=== PATIENT | female | born 1965 | race Caucasian/White ===

== ENCOUNTER 2017-02-18 13:05 | Observation (INO) ==
[2017-02-18] MEDS ORDERED: *HR* HYDROcodone/Acet 5/325 mg TABLET PO ONE (13:13)
[2017-02-18] MEDS ORDERED: *HR* HYDROmorphone (PF) 1 MG/ML SYRINGE IM ONE (14:58)
[2017-02-18 15:42] LABS: Hematocrit 42.7 % (35.3-44.9); Hemoglobin 13.7 g/dL (11.5-15.4); Mean Corpuscular HGB Conc 32.1 g/dL (31.6-35.5); Mean Corpuscular Hemoglobin 26.3 pg (28.0-33.3); Mean Platelet Volume 9.4 fL (9.4-12.4); Platelet Count 259 K/mcL (140-400); Red Blood Count 5.21 M/mcL (3.82-4.97); Red Cell Distribution Width 13.5 % (11.5-14.5)
[2017-02-18 15:56] LABS: Alanine Aminotransferase 33 Units/L (0-55); Albumin/Globulin Ratio 1.1 (1.1-2.2); Alkaline Phosphatase 111 Units/L (38-126); Aspartate Amino Transferase 28 Units/L (5-34); BUN/Creatinine Ratio 13 (6-26); Bilirubin,Total 0.5 mg/dL (0.2-1.2); Blood Urea Nitrogen 10 mg/dL (7-20); Calcium 9.4 mg/dL (8.6-10.8); Carbon Dioxide 27 mEq/L (19-29); Chloride 107 mEq/L (98-109); Globulin 3.5 g/dL (2.4-3.5); Glucose 101 mg/dL (70-99); Osmolality,Calculated 291 (280-300); Potassium 3.9 mEq/L (3.5-4.5); Sodium 141 mEq/L (136-145); Total Protein 7.5 g/dL (6.0-8.3); eGFR For African Americans > 60 (> 60); eGFR For Non-African Americans > 60 (> 60)
[2017-02-18] MEDS ORDERED: Acetaminophen 325 MG TABLET PO PRN (17:44)
[2017-02-18] MEDS ORDERED: Ondansetron 4 MG/2 ML VIAL IVP PRN (17:44)
[2017-02-18] MEDS ORDERED: Naloxone 0.4 MG/ML INJ IVP PRN (17:44)
[2017-02-18] MEDS ORDERED: Dextrose Gel 15 GM PO PRN ×2 (17:47)
[2017-02-18] MEDS ORDERED: *HR* Dextrose 50 % in Water (Syg) 50 ML SYRINGE IVP PRN (17:47)
[2017-02-18] MEDS ORDERED: D5% in Water 1,000 ML IVC PRN (17:47)
--- NOTE | 2017-02-18 18:15 | Internal Med History&Physical ---
Date of Encounter: 02/18/17 Time of Encounter: 18:00 Assessment and Plan (1) T11 vertebral fracture Current visit: Yes Status: Acute Acute T11 superior endplate compression fracture - secondary to mechanical fall Continue IV morphine when necessary Orthopedics consult - ED physician discussed with Dr. Hernandez MRI thoracic spine - revealed acute T11 superior endplate compression fracture with about 30% vertebral body height loss centrally with no retropulsion of fracture fragments into the spinal canal. No other acute findings Qualifiers: Encounter type: initial encounter Fracture type: closed Fracture morphology: other fracture Qualified Code(s): S22.088A - Other fracture of T11 -T12 vertebra, initial encounter for closed fracture (2) Type 2 diabetes mellitus Current visit: Yes Status: Chronic Diabetes mellitus type 2, [id number], hyperglycemia Continue glucose checks, insulin sliding scale Qualifiers: Diabetes mellitus complication status: without complication Diabetes mellitus technician terminal and repeater insulin use: without senior living use Qualified Code(s): E11.9 - Type 2 diabetes mellitus without complications (3) Essential hypertension Current visit: Yes Status: Chronic Essential hypertension, controlled, continue home meds, monitor (4) Sacroiliac joint disease Current visit: No Status: Chronic Chronic sacroiliac joint disease - status post local injection Follows up with pain management (5) DVT prophylaxis Current visit: Yes Status: Acute Continue heparin subcutaneous Internal Medicine - H&P: HPI Chief complaint: Back pain after mechanical fall Admitted From: Emergency Dept Plans for Post Hospital Care: Home History of present illness: Ms. Salas is a 51 year old female with past medical history of diabetes, hypertension, GERD, thyroid disease and chronic sacroiliac joint disease. Patient presents to the ED with complaints of back pain and right leg pain. On examination patient is awake and alert. Not in any distress. Able to answer personal property. is at bedside. Patient states she was moving boxes using a ruthie. She states she suddenly slipped and fell backwards with the ruthie falling on her. Patient complains of upper and mid back pain since her fall. Rates the pain 6 out of 10. Radiates to her back at times. Says it is sharp. Worse with movement. She also complains of right lower leg pain also due to the fall. Says her right lower leg hurts more. No alleviating factors. No other associated symptoms. Denies chest pain, denies shortness of breath, denies palpitations, denies headache or fever or cough. Initial evaluation in the ED revealed no acute process on chest x-ray. X-ray of the tibia and fibula, ankle and foot on the right side is negative. CT of the abdomen and pelvis revealed acute T11 superior endplate compression fracture. Lumbar spine CT does not show any acute process. Patient is being admitted for acute thoracic vertebral fracture. Orthopedics has been consulted by ED physician. Patient will be on IV morphine when necessary for pain. We will continue all home medications. Patient and have been explained about her condition and plan of care. Understood and agreed. No unanswered questions. CODE STATUS full code. Past Med Surg Social Fam HX - Past Medical History Medical history: diabetes, hyperlipidemia, hypertension Psychiatric history: no psych history - Past Surgical History Surgical History: hysterectomy, orthopedic, other - Social History Smoking Status: Never smoker Smokeless Tobacco Status: No Alcohol use: none Drug use: none - Family History Mother Living Status: Still Living Hx Family Cardiac Disorders: Yes Hx Family Cancer: Yes (Breast and kidney) Hx Family Endocrine Disorder: Yes Father Living Status: Still Living Hx Family Cardiac Disorders: Yes Hx Family Respiratory Disorders: Yes Hx Family Endocrine Disorder: Yes Internal Medicine - H&P: Meds Amitriptyline [Elavil] 25 mg PO HS 04/25/15 [History] Aspirin 81 mg PO DAILY 04/25/15 [History] Atorvastatin [Lipitor] 40 mg PO HS 04/25/15 [History] Gabapentin [Neurontin] 300 mg PO QAM 04/25/15 [History] Levothyroxine [Synthroid] 100 mcg PO DAILY 04/25/15 [History] Losartan [Cozaar] 50 mg PO DAILY 04/25/15 [History] Metformin [Glucophage] 500 mg PO DAILY 04/25/15 [History] Metoprolol XL (24 HR) Succ [Toprol Xl] 150 mg PO DAILY 04/25/15 [History] Omeprazole [PriLOSEC] 20 mg PO DAILY 04/25/15 [History] Pramipexole [Mirapex] 0.25 mg PO HS 04/25/15 [History] Topiramate [Topamax] 100 mg PO DAILY 04/25/15 [History] Zolpidem [Ambien] 10 mg PO HS PRN 04/25/15 [History] Ezetimibe [Zetia] 10 mg PO DAILY 02/18/17 [History] Gabapentin [Neurontin] 600 mg PO HS 02/18/17 [History] Allergies carbidopa [From Sinemet] Adverse Reaction (Mild, Verified 02/06/17 15:00) eleavates liver or kindey studies levodopa [From Sinemet] Adverse Reaction (Mild, Verified 02/06/17 15:00) eleavates liver or kindey studies simvastatin Adverse Reaction (Mild, Verified 02/06/17 15:00) eleavates liver and kindey studies All Systems PM: A 10-system review of systems was performed and is negative for pertinent findings except as documented above in the HPI. - Constitutional Constitutional: no fatigue, no fever(s), no weakness - EENT Eyes: no blurry vision - Cardiovascular Cardiovascular ROS IM: no chest pain, no diaphoresis, no dyspnea, no dyspnea on exertion, no lightheadedness, no orthopnea, no syncope - Respiratory Respiratory: no cough, no dyspnea, no dyspnea on exertion, no wheezing, no chest congestion - Gastrointestinal Gastrointestinal: no abdominal pain, no constipation, no diarrhea, no melena, no nausea, no vomiting - Genitourinary Genitourinary: no dysuria - Musculoskeletal Musculoskeletal ROS IM: arthralgias, back pain, other (Right leg pain) - Neurological Neurological ROS: radicular pain, no abnormal gait, no abnormal speech, no dizziness, no focal weakness, no loss of vision, no memory loss, no numbness, no tingling - Constitutional Vitals: Temp Pulse Resp BP Pulse Ox 97.5 F L 74 16 181/106 97 02/18/17 17:11 02/18/17 17:11 02/18/17 17:11 02/18/17 17:11 02/18/17 17:11 General appearance: Present: A&O X 3, pleasant, obese, answers questions appropriately - Head Head exam: Present: atraumatic - Eye Eye exam: Present: EOMI - Neck Neck exam general surgery: Present: supple - Respiratory Respiratory exam: Present: CTAB. Absent: rales, rhonchi, wheezes - Cardiovascular Cardiovascular exam: Present: RRR, +S1, +S2 - GI/Abdominal GI/Abdominal exam: Present: soft, no peritoneal signs. Absent: distended, firm , guarding, rigid, tenderness - Extremities Exam Extremities exam: Present: pedal edema (mild b/l lower leg), tenderness (right lower leg tenderness+), radial pulses palpable and symetrical. Absent: cyanotic - Back Exam Back exam: Present: muscle spasm, paraspinal tenderness, vertebral tenderness ( thoracic spine tenderness+) - Neurological Exam Neurological exam: Present: alert, oriented X3, no focal deficits. Absent: facial droop, speech deficit Internal Med - H&P Results - Labs CBC & Chem 7: 02/18/17 15:34 02/18/17 15:34
[2017-02-18] MEDS: Insulin LISPRO 300 UNITS/3 ML VIAL SQ SCH (19:03)
--- NOTE | 2017-02-18 19:58 | Emergency Department Note ---
Disposition Clinical Impression: T11 vertebral fracture Qualifiers: Encounter type: initial encounter Fracture type: closed Fracture morphology: other fracture Qualified Code(s): S22.088A - Other fracture of T11-T12 vertebra , initial encounter for closed fracture Disposition: Home, Self-Care Condition: Good General Adult HPI - General Chief complaint: ED Fall Stated complaint: Fall, Back Pain, Right Lower Leg Pain Source: patient, EMS Limitations: no limitations Nursing Notes Reviewed: Yes Vital Signs Reviewed: Yes - History of Present Illness HPI Narrative: 31-year-old female presents with concern for back pain. She also has leg pain. She was moving a palate of carbonated beverages which ultimately tripped or fallen on top of her. She has resulting abdominal pain, back pain, right lower extremity pain. Pain Scale: 6 - Related Data Home Medications Medication Instructions Recorded Confirmed Amitriptyline [Elavil] 25 mg PO HS 04/25/15 02/18/17 Aspirin 81 mg PO DAILY 04/25/15 02/18/17 Atorvastatin [Lipitor] 40 mg PO HS 04/25/15 02/18/17 Gabapentin [Neurontin] 300 mg PO QA 04/25/15 02/18/17 Levothyroxine [Synthroid] 100 mcg PO DAILY 04/25/15 02/18/17 Losartan [Cozaar] 50 mg PO DAILY 04/25/15 02/18/17 Metformin [Glucophage] 500 mg PO DAILY 04/25/15 02/18/17 Metoprolol XL (24 HR) Succ [Toprol 150 mg PO DAILY 04/25/15 02/18/17 Xl] Omeprazole [PriLOSEC] 20 mg PO DAILY 04/25/15 02/18/17 Pramipexole [Mirapex] 0.25 mg PO HS 04/25/15 02/18/17 Topiramate [Topamax] 100 mg PO DAILY 04/25/15 02/18/17 Zolpidem [Ambien] 10 mg PO HS PRN 04/25/15 02/18/17 Ezetimibe [Zetia] 10 mg PO DAILY 02/18/17 02/18/17 Gabapentin [Neurontin] 600 mg PO HS 02/18/17 02/18/17 Allergies Allergy/AdvReac Type Severity Reaction Status Date / Time carbidopa [From Sinemet] AdvReac Mild eleavates Verified 02/06/17 15:00 liver or kindey studies levodopa [From Sinemet] AdvReac Mild eleavates Verified 02/06/17 15:00 liver or kindey studies simvastatin AdvReac Mild eleavates Verified 02/06/17 15:00 liver and kindey studies All systems ED: reviewed and negative except as stated. Past Medical History - Past Medical History Medical history: Reports: diabetes, hyperlipidemia, hypertension Surgical history: Reports: hysterectomy, orthopedic, other Psychiatric history: Reports: no psych history - Social History Smoking Status: Never smoker Smokeless Tobacco Status: No Alcohol use: Reports: none Drug use: Reports: none Physical Exam - General Limitations: no limitations General appearance: alert - Head Head exam: atraumatic - Eye Eye exam: Present: normal appearance - Neck Neck exam: Present: normal inspection - Chest Chest inspection: Present: normal inspection - Respiratory Respiratory exam: Present: normal lung sounds bilaterally - Cardiovascular Cardiovascular exam: Present: regular rate, normal rhythm - Abdominal Exam Abdominal exam: Present: soft, Non-Tender - Extremities Exam Extremities exam: Present: normal inspection, full ROM - Expanded Lower Extremity Exam Hip/Pelvis exam: Present: normal inspection, full ROM Upper leg exam: Present: normal inspection, full ROM Knee exam: Present: normal inspection, full ROM Lower leg exam: Present: tenderness Ankle exam: Present: tenderness Foot/toe exam: Present: tenderness Gait: observed and normal - Back Exam Back exam: Present: normal inspection, full ROM - Neurological Exam Neurological exam: Present: alert, oriented X3, CN II-XII intact - Psychiatric Psychiatric exam: Present: normal affect - Skin Skin exam: Present: warm, dry Course Vital Signs Temperature 97.6 F 02/18/17 13:09 Pulse Rate 84 02/18/17 13:09 Respiratory Rate 16 02/18/17 13:09 Blood Pressure 164/125 02/18/17 13:09 O2 Sat by Pulse Oximetry 95 02/18/17 13:09 Temperature 97.5 F L 02/18/17 17:11 Pulse Rate 74 02/18/17 17:11 Respiratory Rate 16 02/18/17 17:11 Blood Pressure 181/106 02/18/17 17:11 O2 Sat by Pulse Oximetry 97 02/18/17 17:11 Oxygen Delivery Oxygen Delivery Room Air Medical Decision Making - MDM Narrative Medical decision making narrative: 51-year-old female with trauma related to a fall. CT scan obtained of the abdomen and pelvis as well as lumbar spine. CT scan shows evidence of acute T11 endplate fracture. I did discuss the case with the on-call spine surgeon who is agreed to evaluate the patient has an inpatient. She will be admitted to the hospitalist team pending spine surgery evaluation. Patient was stable at the time of admission. Additionally she complained of pain in the right lower extremity. She has no evidence of acute fracture. She has normal neurovascular examination. At the time of admission the patient's strength is 5 /5, sensation was normal, reflexes are checked and normal. - Lab Data Result diagrams: 02/18/17 15:34 02/18/17 15:34 Lab Results 02/18/17 02/18/17 Range/Units 15:34 15:34 WBC 14.6 H (4.3-11.1) K/mcL RBC 5.21 H (3.82-4.97) M/mcL Hgb 13.7 (11.5-15.4) g/dL Hct 42.7 (35.3-44.9) % MCV 82.0 L (83.0-100.0) fL MCH 26.3 L (28.0-33.3) pg MCHC 32.1 (31.6-35.5) g/dL RDW 13.5 (11.5-14.5) % Plt Count 259 (140-400) K/mcL MPV 9.4 (9.4-12.4) fL Sodium 141 (136-145) mEq/L Potassium 3.9 (3.5-4.5) mEq/L Chloride 107 (98-109) mEq/L Carbon Dioxide 27 (19-29) mEq/L BUN 10 (7-20) mg/dL Creatinine 0.80 (0.57-1.11) mg/dL Est GFR ( Amer) > 60 (> 60) Est GFR (Non-Af Amer) > 60 (> 60) BUN/Creatinine Ratio 13 (6-26) Glucose 101 H (70-99) mg/dL Calculated Osmolality 291 (280-300) Calcium 9.4 (8.6-10.8) mg/dL Total Bilirubin 0.5 (0.2-1.2) mg/dL AST 28 (5-34) Units/L ALT 33 (0-55) Units/L Alkaline Phosphatase 111 (38-126) Units/L Serum Total Protein 7.5 (6.0-8.3) g/dL Albumin 4.0 (3.5-5.0) g/dL Globulin 3.5 (2.4-3.5) g/dL Albumin/Globulin Ratio 1.1 (1.1-2.2)
[2017-02-18 20:01] LABS: INR 1.1; Prothrombin Time 12.3 Seconds (9.4-12.1)
[2017-02-18] MEDS: Famotidine 20 MG/2 ML VIAL IVP SCH (20:04)
[2017-02-18] MEDS: *HR* Morphine 2 MG/ML SYRINGE IVP PRN (20:05)
[2017-02-18] MEDS: Gabapentin 300 MG CAPSULE PO SCH (20:05)
[2017-02-18] MEDS: *HR* Heparin 5,000 UNIT/ML VIAL SQ SCH (21:48)
[2017-02-19 05:24] LABS: Basophils % 0.5 %; Eosinophils # 0.2 K/mcL (0.0-0.6); Eosinophils % 2.2 %; Hemoglobin 12.8 g/dL (11.5-15.4); Immature Granulocytes % 0.3 % (0-4); Lymphocytes # 2.5 K/mcL (0.6-4.6); Lymphocytes % 28.5 %; Mean Corpuscular Hemoglobin 26.7 pg (28.0-33.3); Mean Corpuscular Volume 83.3 fL (83.0-100.0); Mean Platelet Volume 9.8 fL (9.4-12.4); Monocytes # 0.8 K/mcL (0.0-1.3); Monocytes % 9.5 %; Neutrophils # 5.2 K/mcL (1.6-8.9); Platelet Count 250 K/mcL (140-400); Red Cell Distribution Width 13.8 % (11.5-14.5)
[2017-02-19] MEDS: Famotidine 20 MG/2 ML VIAL IVP SCH ×2 (05:28→17:28)
[2017-02-19] MEDS: *HR* Heparin 5,000 UNIT/ML VIAL SQ SCH ×2 (05:28→17:29)
[2017-02-19] MEDS: *HR* Morphine 2 MG/ML SYRINGE IVP PRN ×4 (05:28→19:26)
[2017-02-19 05:37] LABS: BUN/Creatinine Ratio 17 (6-26); Blood Urea Nitrogen 13 mg/dL (7-20); Calcium 8.9 mg/dL (8.6-10.8); Carbon Dioxide 25 mEq/L (19-29); Chloride 107 mEq/L (98-109); Glucose 138 mg/dL (70-99); Osmolality,Calculated 292 (280-300); Potassium 3.8 mEq/L (3.5-4.5); Sodium 140 mEq/L (136-145); eGFR For African Americans > 60 (> 60); eGFR For Non-African Americans > 60 (> 60)
[2017-02-19] MEDS: Insulin LISPRO 300 UNITS/3 ML VIAL SQ SCH ×3 (07:59→17:25)
[2017-02-19] MEDS: Aspirin 81 MG TAB.CHEW PO SCH (09:41)
[2017-02-19] MEDS: Metoprolol XL (24 HR) Succ 50 MG TAB.ER.24H PO SCH (09:41)
[2017-02-19] MEDS: Gabapentin 300 MG CAPSULE PO SCH ×2 (09:41→21:23)
[2017-02-19] MEDS: Topiramate 100 MG TABLET PO SCH (09:41)
[2017-02-19 11:45] LABS: Bilirubin,Urine Negative (Negative); Blood,Urine Negative (Negative); Clarity,Urine Cloudy (Clear); Color,Urine Yellow (Yellow); Glucose,Urine (UA) Normal (Normal); Ketones,Urine Negative (Negative); Leukocyte Esterase,Urine Trace (Negative); Nitrite,Urine Negative (Negative); PH,Urine 5.5 pH Units (5.0-8.0); Protein,Urine Negative (Neg-Trace); Specific Gravity,Urine 1.027 (1.010-1.025); Urobilinogen,Urine Normal (Normal)
[2017-02-19 11:48] LABS: Bacteria,Urine Few per hpf (None-Few); Hyaline Casts,Urine None Seen per lpf (None-Few); Squamous Epithelial Cell,Urine Many per lpf (None-Few)
--- NOTE | 2017-02-19 12:48 | Internal Med Progress Note ---
Date of Encounter: 02/19/17 Time of Encounter: 10:15 - Assessment and plan (1) T11 vertebral fracture Current Visit: Yes Status: Acute Assessment and plan: Extensive imaging consistent with acute compression fracture to T11. According to ER reports, Dr. Hernandez was notified yesterday, have paged him again today to ensure that he has been brought on board. Appreciate his recommendations. In the meantime, patient's pain medication is on lasting approximately 1-1/2 hours, will increase her pain medication and monitor. Chest x-ray negative. Plain films of her ankle, foot, and tib-fib have all been negative. Lumbar spine CT unremarkable for acute processes. Thoracic spine MRI consistent with T11 compression fracture. Abdominal CT negative for acute processes other than the compression fracture. PT is on board. Patient stating she had numbness and tingling in her right leg yesterday that has since subsided. ITS Impressions Abdomen/Pelvis CT 02/18/17 13:11 IMPRESSION: 1. No evidence of intra abdominopelvic injury 2. Acute T11 superior endplate compression fracture D/ / Harish Mills MD / Harish Mills MD Interpreting Provider: Harish Mills MD Ankle X-Ray 02/18/17 13:11 IMPRESSION: Nonspecific soft tissue edema along the posterior aspect of the right lower leg. No acute fracture or dislocation. D/ / Alessandro Mcduffie MD / Alessandro Mcduffie MD Interpreting Provider: Alessandro Mcduffie MD Chest X-Ray 02/18/17 13:11 IMPRESSION: No acute process. D/ / Alessandro Mcduffie MD / Alessandro Mcduffie MD Interpreting Provider: Alessandro Mcduffie MD Lumbar Spine CT 02/18/17 13:11 IMPRESSION: No acute abnormality of the lumbar spine. Mild multilevel disc degenerative changes without evidence of significant canal narrowing. D/ / 02/18/2017 14:47:12 Alessandro Mcduffie MD / [facility] Interpreting Provider: Alessandro Mcduffie MD Foot X-Ray 02/18/17 14:46 IMPRESSION: 1. No acute osseous abnormality. 2. Mild hallux valgus deformity and osseous bunion. 3. 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 D/ / Tad Garibay MD / Tad Garibay MD Interpreting Provider: Tad Garibay MD Tibia/Fibula X-Ray 02/18/17 14:46 IMPRESSION: No fracture or radiopaque foreign body D/ / Harish Mills MD / Harish Mills MD Interpreting Provider: Harish Mills MD Thoracic Spine MRI 02/18/17 15:05 IMPRESSION: 1. Acute T11 superior endplate compression fracture with about 30% vertebral body height loss centrally. No retropulsion of fracture fragments into the spinal canal. 2. No additional acute thoracic spine fracture. No significant thoracic spinal canal or neural foraminal stenosis. The findings were sent to the Radiology Results Communication [facility] at 7:33 pm on 02/18/2017to be communicated to a licensed caregiver. D/ / 02/18/2017 19:33:20 [facility] Marquis [facility] Inter[facility] Provider: José Antonio Marquis MD Qualifiers: Encounter type: initial encounter Fracture type: closed Fracture morphology: other fracture Qualified Code(s): S22.088A - Other fracture of T11 -T12 vertebra, initial encounter for closed fracture (2) Fall Current Visit: Yes Status: Acute Assessment and plan: Appears mechanical in nature. Patient denies loss of consciousness. Qualifiers: Encounter type: initial encounter Qualified Code(s): W19.XXXA - Unspecified fall, initial encounter (3) Sacroiliac joint disease Current Visit: No Status: Chronic (4) Type 2 diabetes mellitus Current Visit: Yes Status: Chronic Assessment and plan: Controlled with an A1c of 6.0%. Continue sliding scale while admitted. Qualifiers: Diabetes mellitus complication status: without complication Diabetes mellitus regional intermodal truck driver insulin use: without regional intermodal truck driver use Qualified Code(s): E11.9 - Type 2 diabetes mellitus without complications (5) Essential hypertension Current Visit: Yes Status: Chronic Assessment and plan: Blood pressure has improved since admission although she remains borderline hypertensive. Home, she is on Toprol 150 mg daily, losartan 50 mg daily and both of these have been continued. We will continue to address her pain as this is the likely cause of her elevated pressures. If she is still hypertensive once her pain is controlled; will adjust antihypertensive medications as needed. (6) DVT prophylaxis Current Visit: Yes Status: Acute Assessment and plan: Subcutaneous heparin (7) Leukocytosis Current Visit: Yes Status: Resolved Assessment and plan: resolved; appears stress related- no signs of acute infections other than mildly abnormal UA- will culture- patient denies dysuria - Subjective Interval history: Patient seen and examined. On examination, patient is sitting upright in bed conversing with her . Patient stating her pain is not currently controlled. She states that that the numbness and tingling she had in her right leg have improved. She states she is eating well. - Constitutional Vitals: Temp Pulse Resp BP Pulse Ox 98.8 F 88 16 152/93 97 02/19/17 11:20 02/19/17 11:20 02/19/17 11:20 02/19/17 11:20 02/19/17 11:20 General appearance: Present: A&O X 3, pleasant, no acute distress, obese, answers questions appropriately - Head Head exam: Present: atraumatic, normocephalic - Eye Eye exam: Present: PERRL, conjuntiva pink, sclera anicteric Pupils: Present: PERRL - Neck Neck exam general surgery: Present: supple, trachea midline. Absent: lymphadenopathy - Respiratory Respiratory exam: Present: CTAB. Absent: accessory muscle use, rales, respiratory distress, rhonchi, wheezes - Cardiovascular Cardiovascular exam: Present: RRR, +S1, +S2. Absent: diastolic murmur, gallop, rubs, systolic murmur - GI/Abdominal GI/Abdominal exam: Present: normal bowel sounds, soft, no peritoneal signs. Absent: distended, tenderness - Extremities Exam Extremities exam: Present: warm, radial pulses palpable and symetrical. Absent : calf tenderness, cyanotic, pedal edema - Back Exam Back exam: Present: muscle spasm, paraspinal tenderness, vertebral tenderness - Neurological Exam Neurological exam: Present: alert, CN II-XII intact, oriented X3, no focal deficits. Absent: pronater drift, facial droop, speech deficit - Skin Skin exam: Present: dry, intact, pallor, warm Internal Medicine: Result - Labs CBC & Chem 7: 02/19/17 04:51 02/19/17 04:51 Labs: Short CBC 02/19/17 Range/Units 04:51 WBC 8.8 (4.3-11.1) K/mcL Hgb 12.8 (11.5-15.4) g/dL Hct 40.0 (35.3-44.9) % Plt Count 250 (140-400) K/mcL Neutrophils # 5.2 (1.6-8.9) K/mcL BMP 02/19/17 04:51 Sodium 140 Potassium 3.8 Chloride 107 Carbon Dioxide 25 BUN 13 Creatinine 0.77 Glucose 138 H Calcium 8.9 Urine 02/19/17 Range/Units 11:30 Urine Color Yellow (Yellow) Urine Clarity Cloudy A (Clear) Urine pH 5.5 (5.0-8.0) pH Units Ur Specific [place] 1.027 H (1.010-1.025) Urine Protein Negative (Neg-Trace) mg/dL Urine Glucose (UA) Normal (Normal) mg/dL - ABG Interpretation ABG results: PT/INR, D-dimer PT 12.3 Seconds (9.4-12.1) H 02/18/17 17:54 Consult Discharge Plan - Plan Referrals: NO,PCP [Primary Care Provider] -
[2017-02-19] MEDS ORDERED: *HR* HYDROcodone/Acet 5/325 mg TABLET PO PRN (12:56)
--- NOTE | 2017-02-19 17:02 | Pain Management Consultation ---
Date of Encounter: 02/19/17 Time of Encounter: 17:00 Assessment and Plan (1) T11 vertebral fracture Current Visit: Yes Status: Acute The assessment and plan as outlined above was discussed with the patient and/or family members who expressed understanding and agreement. All questions were answered. The patient and I discussed her care. Today we see no clear line for kyphoplasty. We could maximize pain control, brace her and move forward with bedside PT. She was able to sit and stand upright with reasonable pain. Will make adjustment and follow along . History of Present Illness Chief complaint: thoracic back pain HPI: Ms. Salas is a 51 year old female Patient has a recent history of fall. On Saturday the patient landed on her back. She had severe thoracic back pain with radiating leg pain. Patient describes pain as sharp and stabbing. Worse with stress or strain. Somewhat relieved with pain medication and rest. She states that she has been up and around much. She is been using a bedpan. Patient states the pain is centered in her back but she feels as though she can "take the pain." States that she has not been up out of bed much. Reports no weakness. Reported no bowel or bladder dysfunction. No other contributory history. Past Med Surg Social Fam HX - Past Medical History Medical history: diabetes, hyperlipidemia, hypertension Psychiatric history: no psych history - Past Surgical History Surgical History: hysterectomy, orthopedic, other - Social History Smoking Status: Never smoker Smokeless Tobacco Status: No Alcohol use: none Drug use: none - Family History Mother Living Status: Still Living Hx Family Cardiac Disorders: Yes Hx Family Cancer: Yes (Breast and kidney) Hx Family Endocrine Disorder: Yes Father Living Status: Still Living Hx Family Cardiac Disorders: Yes Hx Family Respiratory Disorders: Yes Hx Family Endocrine Disorder: Yes Medications and Allergies Amitriptyline [Elavil] 25 mg PO HS 04/25/15 [History] Aspirin 81 mg PO DAILY 04/25/15 [History] Atorvastatin [Lipitor] 40 mg PO HS 04/25/15 [History] Gabapentin [Neurontin] 300 mg PO QAM 04/25/15 [History] Levothyroxine [Synthroid] 100 mcg PO DAILY 04/25/15 [History] Losartan [Cozaar] 50 mg PO DAILY 04/25/15 [History] Metformin [Glucophage] 500 mg PO DAILY 04/25/15 [History] Metoprolol XL (24 HR) Succ [Toprol Xl] 150 mg PO DAILY 04/25/15 [History] Omeprazole [PriLOSEC] 20 mg PO DAILY 04/25/15 [History] Pramipexole [Mirapex] 0.25 mg PO HS 04/25/15 [History] Topiramate [Topamax] 100 mg PO DAILY 04/25/15 [History] Zolpidem [Ambien] 10 mg PO HS PRN 04/25/15 [History] Ezetimibe [Zetia] 10 mg PO DAILY 02/18/17 [History] Gabapentin [Neurontin] 600 mg PO HS 02/18/17 [History] Allergies carbidopa [From Sinemet] Adverse Reaction (Mild, Verified 02/06/17 15:00) eleavates liver or kindey studies levodopa [From Sinemet] Adverse Reaction (Mild, Verified 02/06/17 15:00) eleavates liver or kindey studies simvastatin Adverse Reaction (Mild, Verified 02/06/17 15:00) eleavates liver and kindey studies Review of Systems All systems PM: reviewed and no additional remarkable complaints except as stated - Constitutional Constitutional ROS IM: as per HPI - EENT Nose, mouth and throat: no headache(s), no neck pain, no neck trauma - Cardiovascular Cardiovascular ROS: no chest pain, no leg edema, no lightheadedness - Respiratory Respiratory: no pain on inspiration, no pain with cough - Gastrointestinal Gastrointestinal: no abdominal pain, no constipation, no diarrhea, no heartburn - Genitourinary Genitourinary ROS: no difficulty urinating, no flank pain, no urinary hesitancy - Musculoskeletal Musculoskeletal ROS: as per HPI (Thoracic lumbar back pain) - Integumentary Integumentary: no erythema, no lesions, no swelling - Neurological Neurological ROS: no abnormal gait, no behavioral changes, no focal weakness, no radicular pain - Psychiatric Psychiatric general: no anxiety, no confusion, no depression Physical Exam Initial Vital Signs Temp Pulse Resp BP Pulse Ox 97.6 F 84 16 164/125 95 02/18/17 13:09 02/18/17 13:09 02/18/17 13:02/18/17 13:02/18/17 13:09 - General physical appearance General physical appearance: awake & oriented, no distress, moderate pain - Eyes Eye exam: normal ocular movement - Neck no masses - Respiratory normal respiratory effort - Cardiovascular Cardiovascular exam: Present: RRR - Abdomen Abdomen: soft, non tender, bowel sounds - Rectum Rectum: normal sphincter tone - Integumentary Integumentary general surgery: no rash - Neurologic normal coordination - Musculoskeletal Musculoskeletal: point tenderness over spinal process (Pain over T11-12. Parasp muscle spasm . ) - Psychiatric Psychiatric: oriented to time, oriented to person, oriented to place Results - Labs 02/19/17 04:51 02/19/17 04:51 Abnormal lab results MCH 26.7 pg (28.0-33.3) L 02/19/17 04:51 PT 12.3 Seconds (9.4-12.1) H 02/18/17 17:54 Glucose 138 mg/dL (70-99) H 02/19/17 04:51 POC Glucose 150 (58-89) H 02/18/17 19:57 Hemoglobin A1c 6.0 % (-5.6) H 02/18/17 17:54 Urine Clarity Cloudy (Clear) A 02/19/17 11:30 Ur Specific Morris 1.027 (1.010-1.025) H 02/19/17 11:30 Ur Leukocyte Esterase Trace (Negative) H 02/19/17 11:30 Urine Microscopic RBC 3-5 per hpf (0-3) H 02/19/17 11:30 Urine Microscopic WBC 5-15 per hpf (0-3) H 02/19/17 11:30 Ur Squamous Epith Cells Many per lpf (None-Few) H 02/19/17 11:30 Diabetes panel 02/18/17 02/19/17 Range/Units 17:54 04:51 Sodium 140 (136-145) mEq/L Potassium 3.8 (3.5-4.5) mEq/L Chloride 107 (98-109) mEq/L Carbon Dioxide 25 (19-29) mEq/L BUN 13 (7-20) mg/dL Creatinine 0.77 (0.57-1.11) mg/dL Glucose 138 H (70-99) mg/dL Hemoglobin A1c 6.0 H ( - 5.6) % Calcium 8.9 (8.6-10.8) mg/dL Calcium panel 02/19/17 Range/Units 04:51 Calcium 8.9 (8.6-10.8) mg/dL Pituitary panel 02/19/17 Range/Units 04:51 Sodium 140 (136-145) mEq/L Potassium 3.8 (3.5-4.5) mEq/L Chloride 107 (98-109) mEq/L Carbon Dioxide 25 (19-29) mEq/L BUN 13 (7-20) mg/dL Creatinine 0.77 (0.57-1.11) mg/dL Glucose 138 H (70-99) mg/dL Calcium 8.9 (8.6-10.8) mg/dL Adrenal panel 02/19/17 Range/Units 04:51 Sodium 140 (136-145) mEq/L Potassium 3.8 (3.5-4.5) mEq/L Chloride 107 (98-109) mEq/L Carbon Dioxide 25 (19-29) mEq/L BUN 13 (7-20) mg/dL Creatinine 0.77 (0.57-1.11) mg/dL Glucose 138 H (70-99) mg/dL Calcium 8.9 (8.6-10.8) mg/dL All other labs normal. Consult Discharge Plan - Plan Referrals: NO,PCP [Primary Care Provider] -
[2017-02-19] MEDS: *HR* HYDROcodone/Acet 10/325 mg TABLET PO PRN ×2 (17:31→23:30)
[2017-02-20] MEDS: *HR* HYDROcodone/Acet 10/325 mg TABLET PO PRN (05:44)
[2017-02-20] MEDS: Famotidine 20 MG/2 ML VIAL IVP SCH (05:45)
[2017-02-20] MEDS: *HR* Heparin 5,000 UNIT/ML VIAL SQ SCH (05:49)
[2017-02-20] MEDS: Insulin LISPRO 300 UNITS/3 ML VIAL SQ SCH (07:45)
[2017-02-20] MEDS: Aspirin 81 MG TAB.CHEW PO SCH (08:00)
[2017-02-20] MEDS: Metoprolol XL (24 HR) Succ 50 MG TAB.ER.24H PO SCH (08:01)
[2017-02-20] MEDS: Gabapentin 300 MG CAPSULE PO SCH (08:01)
[2017-02-20] MEDS: Topiramate 100 MG TABLET PO SCH (08:01)
--- NOTE | 2017-02-20 11:25 | Electrocardiograph Report ---
[place] [id number] Test Date: 2017-02-19 Pat Name: Reba Salas Department: 113 Room: 3B34 Gender: F Quilt Stuffer: NERIS : 1965 Requested By: Shari Almodovar Order Number: [id number] Reading MD: Radha Saha Measurements Intervals [place] Rate: 75 P: 56 CA: 189 QRS: 13 QRSD: 94 T: 59 QT: 410 QTc: 439 Interpretive Statements SINUS RHYTHM PROBABLE INFERIOR MYOCARDIAL INFARCTION, PROBABLY OLD Electronically Signed On 02-20-2017 11:23:49 EDT by Radha Saha
[2017-02-20 12:04] VITALS: BP 125/78
--- NOTE | 2017-02-20 12:23 | Pain Management Progress Note ---
Date of Encounter: 02/20/17 Time of Encounter: 12:21 - Assessment and Plan (1) T11 vertebral fracture Current Visit: Yes Status: Acute Much improved today. Patient is feeling better. Recommend f/u with me as an outpatient for outpatient PT and pain control. No kypho indicated for traumatic compression fractures. Will sign off. Subjective Patient reports: no new complaints, feels better, pain is less Objective Vital Signs - Last 8 Hours Temp Pulse Resp BP Pulse Ox 02/20/17 12:03 98.3 F 69 12 125/78 96 02/20/17 07:18 97.5 F L 73 12 133/84 95 Intake and Output 02/19/17 02/20/17 02/20/17 23:59 07:59 15:59 Intake Total 240 / 240 360 / 360 Output Total 200 / 200 350 / 350 Balance 40 / 40 10 10 Intake: Oral 240 / 240 360 / 360 Output: Urine 200 / 200 350 / 350 Other: Meal Dinner Breakfast Percent of Meal Consumed 100% 100% Weight 96.071 kg Blood Glucose* 144 118 153 Patient Weight 02/20/17 23:59 Weight 96.071 kg - General physical appearance well developed - Eyes normal ocular movement - Respiratory normal respiratory effort - Musculoskeletal normal posture - Psychiatric oriented to time, oriented to person, oriented to place - Labs 02/19/17 04:51 02/19/17 04:51 Consult Discharge Plan - Plan Referrals: Mitchell Aragon MD [Primary Care Provider] - 03/01/17 2:00 pm
--- NOTE | 2017-02-20 12:47 | Discharge Summary ---
Date of Encounter: 02/20/17 Time of Encounter: 10:00 - Discharge Diagnosis (1) T11 vertebral fracture Priority: Primary Status: Acute Comments: Extensive imaging consistent with acute compression fracture to T11. Seen by Ortho/pain/spine Dr Maher and a TLSO brace was placed. Followup outpatient. No needs other than walker Rx per PT. 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 Follow-up outpatient Qualifiers: Diabetes mellitus complication status: without complication Diabetes mellitus senior care insulin use: without long term care administrator use Qualified Code(s): E11.9 - Type 2 diabetes mellitus without complications (5) Essential hypertension Priority: Secondary Status: Chronic Comments: Normotensive on day of discharge now that her pain is better controlled. Follow -up outpatient. (6) DVT prophylaxis Priority: Primary Status: Acute Comments: Subcutaneous heparin while admitted. (7) Leukocytosis Priority: Primary Status: Resolved Comments: resolved. Likely stress related, no signs of infection - Discharge Medications Prescriptions: Cyclobenzaprine [Flexeril] 10 mg PO TID PRN #30 tablet PRN Reason: Muscle Spasm Docusate [Colace] 100 mg PO BID #20 capsule HYDROcodone/Acet 10/325 mg [[place] 10-325 mg] 1 each PO Q6H PRN #25 tablet PRN Reason: Pain Walker W Wheels [WHEELED WALKER] 1 each .ROUTE AD #1 each Home Medications: Amitriptyline [Elavil] 25 mg PO HS 04/25/15 [History] Aspirin 81 mg PO DAILY 04/25/15 [History] Atorvastatin [Lipitor] 40 mg PO HS 04/25/15 [History] Gabapentin [Neurontin] 300 mg PO QAM 04/25/15 [History] Levothyroxine [Synthroid] 100 mcg PO DAILY 04/25/15 [History] Losartan [Cozaar] 50 mg PO DAILY 04/25/15 [History] Metformin [Glucophage] 500 mg PO DAILY 04/25/15 [History] Metoprolol XL (24 HR) Succ [Toprol Xl] 150 mg PO DAILY 04/25/15 [History] Omeprazole [PriLOSEC] 20 mg PO DAILY 04/25/15 [History] Pramipexole [Mirapex] 0.25 mg PO HS 04/25/15 [History] Topiramate [Topamax] 100 mg PO DAILY 04/25/15 [History] Zolpidem [Ambien] 10 mg PO HS PRN 04/25/15 [History] Ezetimibe [Zetia] 10 mg PO DAILY 02/18/17 [History] Gabapentin [Neurontin] 600 mg PO HS 02/18/17 [History] Cyclobenzaprine [Flexeril] 10 mg PO TID PRN #30 tablet 02/20/17 [Rx] Docusate [Colace] 100 mg PO BID #20 capsule 02/20/17 [Rx] HYDROcodone/Acet 10/325 mg [[place] 10-325 mg] 1 each PO Q6H PRN #25 tablet [Rx] Walker [employer] [WHEELED WALKER] 1 each .ROUTE AD #1 each 02/20/17 [Rx] Allergies/Adverse Reactions: Allergies carbidopa [From Sinemet] Adverse Reaction (Mild, Verified 02/06/17 15:00) eleavates liver or kindey studies levodopa [From Sinemet] Adverse Reaction (Mild, Verified 02/06/17 15:00) eleavates liver or kindey studies simvastatin Adverse Reaction (Mild, Verified 02/06/17 15:00) eleavates liver and kindey studies Procedures/tests Complete & Pending: Procedures Performed prior 72 hours Category Date Time Status ECG 12 lead ECG [ECG] Routine Y 02/18/17 17:44 Ordered ECG 12 lead ECG [ECG] Routine Y 02/19/17 03:50 Completed Date of admission: 02/18/17 16:40 Primary care physician: Mitchell Aragon MD Consults: 02/18/17 17:46 Consult to Physical Therapy [CONS] Routine Comment: Evaluate, develop and implement POC Reason for Consult: PT eval Consult to Product Managent Intern [CONS] Routine Reason for SW Consult: Discharge planning 02/18/17 17:50 Consult to Orthopedic Surgery [CONS] Routine Consulting Provider: [facility] Reason for Consult: Thoracic vertebral fracture Call Completed: Yes 02/19/17 11:34 Consult to Physician [CONS] Routine Consulting Provider: Keaton Hernandez Jr Reason for Consult: acute T11 compression fxr. ED states they called you yesterday Call Completed: Yes Discharging clinician: Shari Almodovar Anticipated date of discharge: 02/20/17 - Patient Status Disposition: Home, Self-Care Condition: Good Functional capacity at discharge: uses cane/walker Overall status at discharge: patient is progressing back to baseline - Discharge Instructions Follow Up With: Mitchell Aragon MD [Primary Care Provider] - 03/01/17 2:00 pm Angel Maher DO [Partnered Physician] - Forms: ED Satisfaction Letter Additional Instructions: Follow-up with primary care provider as scheduled, follow-up with Dr. Maher early next week - Diet and Activity Activity: increase activity as tolerated, return to work once cleared by your PCP/specialist Diet: low fat, low cholesterol, low salt diet Hospital course: Ms. Salas is a 51 year old female with past medical history of diabetes, hypertension, GERD, thyroid disease, chronic sacroiliac joint disease. Patient presented to the emergency department chief complaint of back pain and right leg pain. Patient stating she was moving boxes using a jono at home when she suddenly slipped and fell backwards in the jono fell on top of her. Patient complained of upper and mid back pain since a fall. She states that her pain is sharp and worsened with movement. She also complained of right lower leg pain after the fall. Patient denied chest pain, shortness of breath, palpitations, loss of consciousness. The fall was mechanical in nature. Imaging of her right lower extremity ankle and foot were negative for acute processes. Chest x-ray negative. Lumbar spine CT negative. Abdominal pelvic CT revealing acute T11 compression fracture. Patient was admitted to the hospitalist service for further evaluation and management. Patient had mild leukocytosis which resolved after admission was likely stress related. She did have an abnormal urinalysis but urine culture was negative and she denied dysuria. Dr Maher was brought onboard and recommended medical management with a TLSO and pain management. Prior to discharge, patient was able to control her pain with by mouth medications. She was also seen by physical therapy who surmised she had no needs other than need for a walker at home. She was discharged home in stable condition with close outpatient follow-up with Dr. Maher and her primary care provider. ITS Impressions Abdomen/Pelvis CT 02/18/17 13:11 IMPRESSION: 1. No evidence of intra abdominopelvic injury 2. Acute T11 superior endplate compression fracture D/ / Harish Mills MD / Harish Mills MD Interpreting Provider: Harish Mills MD Ankle X-Ray 02/18/17 13:11 IMPRESSION: Nonspecific soft tissue edema along the posterior aspect of the right lower leg. No acute fracture or dislocation. D/ / Alessandro Mcduffie MD / Alessandro Mcduffie MD Interpreting Provider: Alessandro Mcduffie MD Chest X-Ray 02/18/17 13:11 IMPRESSION: No acute process. D/ / Alessandro Mcduffie MD / Alessandro Mcduffie MD Interpreting Provider: Alessandro Mcduffie MD Lumbar Spine CT 02/18/17 13:11 IMPRESSION: No acute abnormality of the lumbar spine. Mild multilevel disc degenerative changes without evidence of significant canal narrowing. D/ / 02/18/2017 14:47:12 Alessandro Mcduffie MD / earnold Interpreting Provider: Alessandro Mcduffie MD Foot X-Ray 02/18/17 14:46 IMPRESSION: 1. No acute osseous abnormality. 2. Mild hallux valgus deformity and osseous bunion. 3. 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 D/ / Tad Garibay MD / Tad Garibay MD Interpreting Provider: Tad Garibay MD Tibia/Fibula X-Ray 02/18/17 14:46 IMPRESSION: No fracture or radiopaque foreign body D/ / Harish Mills MD / Harish Mills MD Interpreting Provider: Harish Mills MD Thoracic Spine MRI 02/18/17 15:05 IMPRESSION: 1. Acute T11 superior endplate compression fracture with about 30% vertebral body height loss centrally. No retropulsion of fracture fragments into the spinal canal. 2. No additional acute thoracic spine fracture. No significant thoracic spinal canal or neural foraminal stenosis. The findings were sent to the Radiology Results [facility] at 7:33 pm on 02/18/2017to be communicated to a licensed caregiver. D/ / 02/18/2017 19:33:20 José Antonio Marquis MD / sindy Interpreting Provider: José Antonio Marquis MD - Time Spent with Patient Total time spent providing and/or coordinating discharge services: - Constitutional Vitals: Temp Pulse Resp BP Pulse Ox 98.3 F 69 12 125/78 96 02/20/17 12:03 02/20/17 12:03 02/20/17 12:03 02/20/17 12:03 02/20/17 12:03 General appearance: Present: A&O X 3, pleasant, no acute distress, obese, answers questions appropriately - Head Head exam: Present: atraumatic, normocephalic - Eye Eye exam: Present: PERRL, conjuntiva pink, sclera anicteric Pupils: Present: PERRL - Neck Neck exam general surgery: Present: supple, trachea midline. Absent: lymphadenopathy - Respiratory Respiratory exam: Present: CTAB. Absent: accessory muscle use, rales, respiratory distress, rhonchi, wheezes - Cardiovascular Cardiovascular exam: Present: RRR, +S1, +S2. Absent: diastolic murmur, gallop, rubs, systolic murmur - GI/Abdominal GI/Abdominal exam: Present: normal bowel sounds, soft, no peritoneal signs. Absent: distended, tenderness - Extremities Exam Extremities exam: Present: warm, radial pulses palpable and symetrical. Absent : calf tenderness, cyanotic, pedal edema - Expanded Lower Extremities Exam Gait: Present: antalgic - Back Exam Back exam: Present: muscle spasm, vertebral tenderness - Neurological Exam Neurological exam: Present: alert, CN II-XII intact, oriented X3, no focal deficits, strengths equal and symetr throughout. Absent: pronater drift, facial droop, speech deficit - Skin Skin exam: Present: dry, intact, normal color, warm
== END 2017-02-20 15:19 | disposition home or self-care (01) ==
LOC: 3BNU 13:05 → EMEROO 13:05 → SUATTDRO 16:40 → 3BNU 17:13
PROVIDERS: ADMIT Registered Nurse; ATTEND Nurse Practitioner Family

== ENCOUNTER 2019-04-16 13:39 | Observation (INO) ==
[2019-04-16 14:09] LABS: Basophils # 0.1 K/mcL (0.0-0.2); Basophils % 0.4 %; Eosinophils # 0.2 K/mcL (0.0-0.6); Eosinophils % 1.5 %; Hematocrit 43.2 % (35.3-44.9); Hemoglobin 13.8 g/dL (11.5-15.4); Immature Granulocytes % 0.3 % (0-4); Lymphocytes # 5.4 K/mcL (0.6-4.6); Lymphocytes % 37.9 %; Mean Corpuscular HGB Conc 31.9 g/dL (31.6-35.5); Mean Corpuscular Hemoglobin 26.4 pg (28.0-33.3); Mean Corpuscular Volume 82.6 fL (83.0-100.0); Mean Platelet Volume 9.5 fL (9.4-12.4); Monocytes # 1.7 K/mcL (0.0-1.3); Monocytes % 11.8 %; Neutrophils # 6.8 K/mcL (1.6-8.9); Platelet Count 316 K/mcL (140-400); Red Blood Count 5.23 M/mcL (3.82-4.97); Red Cell Distribution Width 13.9 % (11.5-14.5); Segmented Neutrophils % 48.1 %; White Blood Count 14.2 K/mcL (4.3-11.1)
[2019-04-16] MEDS ORDERED: *HR* Heparin 5,000 UNIT/ML VIAL IVP PRN ×2 (14:19)
[2019-04-16] MEDS ORDERED: *HR* Heparin 5,000 UNIT/ML VIAL IVP ONE (14:19)
--- NOTE | 2019-04-16 14:19 | Emergency Department Note ---
Disposition Clinical Impression: Chest pain Qualifiers: Chest pain type: chest pain due to myocardial ischemia Ischemic chest pain type: unspecified angina pectoris type Qualified Code(s): I25.9 - Chronic ischemic heart disease, unspecified Disposition: Admitted As Inpatient Condition: Good Referrals: Mitchell Aragon MD [Primary Care Provider] - Forms: ED Satisfaction Letter Time of Disposition: 15:17 Chest Pain HPI - General Chief Complaint: ED Chest Pain Stated Complaint: Chest Pain Time Seen by Provider: 04/16/19 13:43 Source: patient, family Mode of arrival: ambulatory Limitations: no limitations Vital Signs Reviewed: Yes Nursing Notes Reviewed: Yes - History of Present Illness HPI Narrative: 54 yo woman has had radiating CP w/ dizziness while at rest for "a couple months" and was at her gypsum block setter's office this morning when she had severe chest heaviness and felt like she was going to pass out. Although it did not occur this time she has had episodes of diaphoresis with the CP previously. She came to ED per gypsum block setter's recommendation, who wants her admitted for heart cath. She had a stress test in March that indicated possible blockage. Her symptoms have since resolved. Patient also endorses frequent diarrhea after eating. She denies LOC, numbness, weakness, history of blood clots or bleeding issues, aneurysm, stroke/TIA, GI bleed, MD. She denies fever, N/V, other recent illness. She is sedentary, but does not smoke. PMH includes HTN, T2DM, hypothyroid, T11-T12 fracture. Severity scale (1-10): 5 - Related Data Home Medications Medication Instructions Recorded Confirmed Amitriptyline [Elavil] 25 mg PO HS 04/25/15 02/18/17 Aspirin 81 mg PO DAILY 04/25/15 02/18/17 Atorvastatin [Lipitor] 40 mg PO HS 04/25/15 02/18/17 Levothyroxine [Synthroid] 100 mcg PO DAILY 04/25/15 02/18/17 Losartan [Cozaar] 50 mg PO DAILY 04/25/15 02/18/17 Metformin [Glucophage] 500 mg PO DAILY 04/25/15 02/18/17 Metoprolol XL (24 HR) Succ [Toprol 150 mg PO DAILY 04/25/15 02/18/17 Xl] Omeprazole [PriLOSEC] 20 mg PO DAILY 04/25/15 02/18/17 Pramipexole [Mirapex] 0.25 mg PO HS 04/25/15 02/18/17 Topiramate [Topamax] 100 mg PO DAILY 04/25/15 02/18/17 Zolpidem [Ambien] 10 mg PO HS PRN 04/25/15 02/18/17 Ezetimibe [Zetia] 10 mg PO DAILY 02/18/17 02/18/17 Gabapentin [Neurontin] 600 mg PO HS 02/18/17 02/18/17 Citalopram [CeleXA] 20 mg PO DAILY 04/16/19 04/16/19 Previous Rx's Medication Instructions Recorded Walker W Wheels [WHEELED WALKER] 1 each .ROUTE AD #1 each 02/20/17 Allergies Allergy/AdvReac Type Severity Reaction Status Date / Time carbidopa [From Sinemet] AdvReac Mild eleavates Verified 02/06/17 15:00 liver or kindey studies levodopa [From Sinemet] AdvReac Mild eleavates Verified 02/06/17 15:00 liver or kindey studies simvastatin AdvReac Mild eleavates Verified 02/06/17 15:00 liver and kindey studies All systems ED: reviewed and negative except as stated. Cardiovascular: Reports: chest pain Neurological: Reports: vertigo Chest Pain PMH - Past Medical History Medical history: Reports: diabetes, hyperlipidemia, hypertension Surgical history: Reports: hysterectomy, orthopedic, other Psychiatric history: Reports: no psych history - Social History Smoking Status: Never smoker Alcohol use: Reports: none Drug use: Reports: none Physical Exam PE Gen: AOx3, NAD HEENT: No lymphadenopathy. Pupils equal and reactive. Cardio: Regular rate and rhythm, no murmur, no peripheral edema, good perfusion to all extremities, no cyanosis. Resp: Equal breath sounds bilaterally, no wheeze, no cough GI: Abdomen soft, nondistended, nontender to palpation. No ecchymoses, no rash. : No suprapubic tenderness or distention MSK: Normal ROM, no joint swelling or erythema. No pain to palpation along chest wall. Neuro: CNI-XII intact, strength and sensation WNL Psych: Appropriate affect - General Limitations: no limitations General appearance: alert, in no apparent distress Course Course Narrative: VS stable, patient not in any distress currently as symptoms have resolved. No acute changes on EKG. Will repeat in 30 minutes, check troponin, CMP, CBC, CXR. Discussed admit with cardiology who requested starting IV heparin, which was done, and patient was given 3 doses of 81 mg baby aspirin to make total 325mg today (she took 1 this morning at home). - Reevaluation(s) Reevaluation #1: Of note, patient's glucose 52 here. She said she has not been checking it at [facility], just taking her medications. Will feed her. Time: 14:45 Vital Signs Temperature 97.7 F 04/16/19 13:42 Pulse Rate 74 04/16/19 13:42 Respiratory Rate 18 04/16/19 13:42 Blood Pressure 146/89 04/16/19 13:42 O2 Sat by Pulse Oximetry 98 04/16/19 13:42 Temperature 97.7 F 04/16/19 13:42 Pulse Rate 74 04/16/19 13:42 Respiratory Rate 18 04/16/19 13:42 Blood Pressure 146/89 04/16/19 13:42 O2 Sat by Pulse Oximetry 98 04/16/19 13:42 Oxygen Delivery Oxygen Delivery Room Air Chest Pain - MDM Narrative Medical decision making narrative: VS stable, patient asymptomatic. Discussed plan to admit with cardiology and patient, all agreed w/ plan. Troponin WNL. CXR neg. Mild leukocytosis at 14. Glucose 52, so fed patient. Started IV heparin. - Medical Records Medical records reviewed: Yes I reviewed the patient's medical records. - Lab Data Lab results reviewed: Yes I reviewed the patient's lab results. Result diagrams: 04/16/19 13:54 04/16/19 13:54 Lab Results 04/16/19 04/16/19 04/16/19 Range/Units 13:54 13:54 13:54 WBC 14.2 H (4.3-11.1) K/mcL RBC 5.23 H (3.82-4.97) M/mcL Hgb 13.8 (11.5-15.4) g/dL Hct 43.2 (35.3-44.9) % MCV 82.6 L (83.0-100.0) fL MCH 26.4 L (28.0-33.3) pg MCHC 31.9 (31.6-35.5) g/dL RDW 13.9 (11.5-14.5) % Plt Count 316 (140-400) K/mcL MPV 9.5 (9.4-12.4) fL Immature Gran % 0.3 (0-4) % Seg Neutrophils % 48.1 % Lymphocytes % 37.9 % Monocytes % 11.8 % Eosinophils % 1.5 % Basophils % 0.4 % Neutrophils # 6.8 (1.6-8.9) K/mcL Lymphocytes # 5.4 H (0.6-4.6) K/mcL Monocytes # 1.7 H (0.0-1.3) K/mcL Eosinophils # 0.2 (0.0-0.6) K/mcL Basophils # 0.1 (0.0-0.2) K/mcL PT 10.5 (9.4-12.1) Seconds INR 0.9 APTT 33.9 (26.0-36.0) Seconds Heparin Anti-Xa, Unfract 0.01 L (0.30-0.70) IU/mL Sodium 141 (136-145) mEq/L Potassium 3.5 (3.5-5.1) mEq/L Chloride 107 (98-107) mEq/L Carbon Dioxide 24 (23-29) mEq/L BUN 11 (6-20) mg/dL Creatinine 0.75 (0.60-1.20) mg/dL Est GFR ( Amer) > 60 (> 60) Est GFR (Non-Af Amer) > 60 (> 60) BUN/Creatinine Ratio 15 (6-26) Glucose 52 L (70-105) mg/dL Calculated Osmolality 289 (280-300) Calcium 9.1 (8.6-10.3) mg/dL Total Bilirubin 0.5 (0.3-1.0) mg/dL AST 18 (13-39) Units/L ALT 21 (7-52) Units/L Alkaline Phosphatase 102 (34-104) Units/L Troponin I < 0.03 (< 0.04) ng/mL Serum Total Protein 7.7 (6.4-8.9) g/dL Albumin 4.4 (3.5-5.7) g/dL Globulin 3.3 (2.4-3.5) g/dL Albumin/Globulin Ratio 1.3 (1.1-2.2) - Radiology Data Radiology results reviewed: Yes I reviewed the patient's radiology results. Chest X-Ray 04/16/19 13:54 IMPRESSION: No acute cardiopulmonary process. D/ / Cari Brice MD / Cari Brice MD Interpreting Provider: Cari Brice MD - EKG Data EKG attestation: Yes I reviewed and interpreted this EKG. EKG shows normal: sinus rhythm Rate: normal When compared to previous EKG there are: no significant changes (04/16/19, 13:16) Interpretation: no acute changes, nonspecific ST-T wave changes Heart Score - Score History: Highly Suspicious EKG: Normal Age: 45-65 Risk Factors: 1-2 risk factors Troponin: Less than normal limit HEART Score Total: 4
[2019-04-16] MEDS ORDERED: Heparin 25,000 UNIT/250 ML D5W 25,000 UNIT/250 ML IV.SOLN IVC SCH (14:30)
[2019-04-16 14:38] LABS: Alanine Aminotransferase 21 Units/L (7-52); Albumin 4.4 g/dL (3.5-5.7); Albumin/Globulin Ratio 1.3 (1.1-2.2); Alkaline Phosphatase 102 Units/L (34-104); Aspartate Amino Transferase 18 Units/L (13-39); BUN/Creatinine Ratio 15 (6-26); Bilirubin,Total 0.5 mg/dL (0.3-1.0); Blood Urea Nitrogen 11 mg/dL (6-20); Calcium 9.1 mg/dL (8.6-10.3); Carbon Dioxide 24 mEq/L (23-29); Chloride 107 mEq/L (98-107); Globulin 3.3 g/dL (2.4-3.5); Glucose 52 mg/dL (70-105); Osmolality,Calculated 289 (280-300); Potassium 3.5 mEq/L (3.5-5.1); Sodium 141 mEq/L (136-145); Total Protein 7.7 g/dL (6.4-8.9); Troponin I < 0.03 ng/mL (< 0.04); eGFR For African Americans > 60 (> 60); eGFR For Non-African Americans > 60 (> 60)
[2019-04-16] MEDS ORDERED: Aspirin 81 MG TAB.CHEW ONE (14:42)
[2019-04-16] MEDS ORDERED: Aspirin 81 MG TAB.CHEW PO ONE (14:45)
--- NOTE | 2019-04-16 14:51 | Emergency Department Note ---
Disposition Clinical Impression: Chest pain Qualifiers: Chest pain type: chest pain due to myocardial ischemia Ischemic chest pain type: unstable angina pectoris Qualified Code(s): I20.0 - Unstable angina Disposition: Admitted As Inpatient Condition: Good Time of Disposition: 15:17 General Adult HPI - General Chief complaint: ED Chest Pain Stated complaint: Chest Pain Time Seen by Provider: 04/16/19 13:43 Source: patient, family Mode of arrival: ambulatory Limitations: no limitations - History of Present Illness Pain Scale: 5 - Related Data Home Medications Medication Instructions Recorded Confirmed Aspirin 81 mg PO DAILY 04/25/15 04/16/19 Omeprazole [PriLOSEC] 20 mg PO DAILY 04/25/15 04/16/19 Zolpidem [Ambien] 10 mg PO HS PRN 04/25/15 04/16/19 Gabapentin [Neurontin] 600 mg PO HS 02/18/17 04/16/19 Amitriptyline [Elavil] 25 mg PO HS 04/16/19 04/16/19 Atorvastatin [Lipitor] 40 mg PO QPM 04/16/19 04/16/19 Cholecalciferol (Vitamin D3) 10,000 units PO DAILY 04/16/19 04/16/19 [Dialyvite Vitamin D] Citalopram [CeleXA] 20 mg PO DAILY 04/16/19 04/16/19 Glimepiride [Amaryl] 2 mg PO DAILY 04/16/19 04/16/19 Levothyroxine [Synthroid] 125 mcg PO QAM 04/16/19 04/16/19 Meloxicam 15 mg PO DAILY PRN 04/16/19 04/16/19 Metformin HCl 1,000 mg PO BID 04/16/19 04/16/19 Metoprolol Succinate [Toprol Xl] 150 mg PO DAILY 04/16/19 04/16/19 Multivitamin [Daily Multiple 1 tab PO DAILY 04/16/19 04/16/19 Vitamin] Nystatin POWDER [Nystop] 1 appl TP BID PRN 04/16/19 04/16/19 Oxybutynin Chloride [Oxybutynin 10 mg PO DAILY 04/16/19 04/16/19 Chloride ER] Pramipexole [Mirapex] 0.25 mg PO HS 04/16/19 04/16/19 Rizatriptan Benzoate [Maxalt [place] Ironer] 10 mg PO PRN PRN 04/16/19 04/16/19 Topiramate 50 mg PO BID 04/16/19 04/16/19 Allergies Allergy/AdvReac Type Severity Reaction Status Date / Time carbidopa [From Sinemet] AdvReac Mild eleavates Verified 02/06/17 15:00 liver or kindey studies levodopa [From Sinemet] AdvReac Mild eleavates Verified 02/06/17 15:00 liver or kindey studies simvastatin AdvReac Mild eleavates Verified 02/06/17 15:00 liver and kindey studies Cardiovascular: Reports: chest pain Neurological: Reports: vertigo Past Medical History - Past Medical History Medical history: Reports: diabetes, hyperlipidemia, hypertension Surgical history: Reports: hysterectomy, orthopedic, other Psychiatric history: Reports: no psych history - Social History Smoking Status: Never smoker Smokeless Tobacco Status: No Alcohol use: Reports: none Drug use: Reports: none Physical Exam - General Limitations: no limitations General appearance: alert, in no apparent distress Course Vital Signs Temperature 97.7 F 04/16/19 13:42 Pulse Rate 74 04/16/19 13:42 Respiratory Rate 18 04/16/19 13:42 Blood Pressure 146/89 04/16/19 13:42 O2 Sat by Pulse Oximetry 98 04/16/19 13:42 Temperature 97.5 F L 04/17/19 19:33 Pulse Rate 64 04/17/19 19:33 Respiratory Rate 14 04/17/19 19:33 Blood Pressure 156/79 04/17/19 19:33 O2 Sat by Pulse Oximetry 96 04/17/19 19:33 Oxygen Delivery Oxygen Delivery Room Air Medical Decision Making - Lab Data Result diagrams: 04/16/19 13:54 04/16/19 13:54 Lab Results 04/16/19 04/16/19 04/16/19 Range/Units 13:54 13:54 13:54 WBC 14.2 H (4.3-11.1) K/mcL RBC 5.23 H (3.82-4.97) M/mcL Hgb 13.8 (11.5-15.4) g/dL Hct 43.2 (35.3-44.9) % MCV 82.6 L (83.0-100.0) fL MCH 26.4 L (28.0-33.3) pg MCHC 31.9 (31.6-35.5) g/dL RDW 13.9 (11.5-14.5) % Plt Count 316 (140-400) K/mcL MPV 9.5 (9.4-12.4) fL Immature Gran % 0.3 (0-4) % Seg Neutrophils % 48.1 % Lymphocytes % 37.9 % Monocytes % 11.8 % Eosinophils % 1.5 % Basophils % 0.4 % Neutrophils # 6.8 (1.6-8.9) K/mcL Lymphocytes # 5.4 H (0.6-4.6) K/mcL Monocytes # 1.7 H (0.0-1.3) K/mcL Eosinophils # 0.2 (0.0-0.6) K/mcL Basophils # 0.1 (0.0-0.2) K/mcL PT 10.5 (9.4-12.1) Seconds INR 0.9 APTT 33.9 (26.0-36.0) Seconds Heparin Anti-Xa, Unfract 0.01 L (0.30-0.70) IU/mL Sodium 141 (136-145) mEq/L Potassium 3.5 (3.5-5.1) mEq/L Chloride 107 (98-107) mEq/L Carbon Dioxide 24 (23-29) mEq/L BUN 11 (6-20) mg/dL Creatinine 0.75 (0.60-1.20) mg/dL Est GFR ( Amer) > 60 (> 60) Est GFR (Non-Af Amer) > 60 (> 60) BUN/Creatinine Ratio 15 (6-26) Glucose 52 L (70-105) mg/dL POC Glucose (70-99) mg/dL Est Mean Plasma Glucose mg/dl Hemoglobin A1c ( - 5.6) % Calculated Osmolality 289 (280-300) Calcium 9.1 (8.6-10.3) mg/dL Total Bilirubin 0.5 (0.3-1.0) mg/dL AST 18 (13-39) Units/L ALT 21 (7-52) Units/L Alkaline Phosphatase 102 (34-104) Units/L Troponin I < 0.03 (< 0.04) ng/mL Serum Total Protein 7.7 (6.4-8.9) g/dL Albumin 4.4 (3.5-5.7) g/dL Globulin 3.3 (2.4-3.5) g/dL Albumin/Globulin Ratio 1.3 (1.1-2.2) 04/16/19 04/16/19 Range/Units 13:54 15:12 WBC (4.3-11.1) K/mcL RBC (3.82-4.97) M/mcL Hgb (11.5-15.4) g/dL Hct (35.3-44.9) % MCV (83.0-100.0) fL MCH (28.0-33.3) pg MCHC (31.6-35.5) g/dL RDW (11.5-14.5) % Plt Count (140-400) K/mcL MPV (9.4-12.4) fL Immature Gran % (0-4) % Seg Neutrophils % % Lymphocytes % % Monocytes % % Eosinophils % % Basophils % % Neutrophils # (1.6-8.9) K/mcL Lymphocytes # (0.6-4.6) K/mcL Monocytes # (0.0-1.3) K/mcL Eosinophils # (0.0-0.6) K/mcL Basophils # (0.0-0.2) K/mcL PT (9.4-12.1) Seconds INR APTT (26.0-36.0) Seconds Heparin Anti-Xa, Unfract (0.30-0.70) IU/mL Sodium (136-145) mEq/L Potassium (3.5-5.1) mEq/L Chloride (98-107) mEq/L Carbon Dioxide (23-29) mEq/L BUN (6-20) mg/dL Creatinine (0.60-1.20) mg/dL Est GFR ( Amer) (> 60) Est GFR (Non-Af Amer) (> 60) BUN/Creatinine Ratio (6-26) Glucose (70-105) mg/dL POC Glucose 95 (70-99) mg/dL Est Mean Plasma Glucose 143 mg/dl Hemoglobin A1c 6.6 H ( - 5.6) % Calculated Osmolality (280-300) Calcium (8.6-10.3) mg/dL Total Bilirubin (0.3-1.0) mg/dL AST (13-39) Units/L ALT (7-52) Units/L Alkaline Phosphatase (34-104) Units/L Troponin I (< 0.04) ng/mL Serum Total Protein (6.4-8.9) g/dL Albumin (3.5-5.7) g/dL Globulin (2.4-3.5) g/dL Albumin/Globulin Ratio (1.1-2.2) Attestation Statement - Attestation Attestation: I examined this patient and my medical decision-making was reviewed with the Resident Physician. I agree with the documented findings, disposition and treatment plan as described except to the extent set forth below. Patient 34-year-old female presents to emergency department with chief complaint of chest pain and episodes of lightheadedness. The patient was in her distribution center manager office today and EKG performed and the distribution center manager wanted her ad mitted to the hospital and plans on not performing a cardiac catheter tomorrow. Currently the patient is asymptomatic and having chest pain this time. Physical exam patient awake alert no acute distress Medical decision management EKG was performed laboratory studies were obtained the patient's distribution center manager was contacted and the patient will be started on a heparin drip her the limitations of the patient's distribution center manager and also the patient will be given a dose of aspirin in the emergency department. The patient will be admitted to the hospitalist service I personally supervised and was present for the aguila/critical portions of the following procedures completed by the resident:EKG.
[2019-04-16 15:05] LABS: Heparin anti-factor XA UFH 0.01 IU/mL (0.30-0.70)
[2019-04-16 15:07] LABS: Activated Partial Thrombo Time 33.9 Seconds (26.0-36.0); INR 0.9; Prothrombin Time 10.5 Seconds (9.4-12.1)
[2019-04-16] MEDS ORDERED: Ondansetron 4 MG/2 ML VIAL IVP PRN (15:21)
[2019-04-16] MEDS ORDERED: Naloxone 0.4 MG/ML INJ IVP PRN (15:21)
[2019-04-16] MEDS ORDERED: *HR* HYDROcodone/Acet 5/325 mg TABLET PO PRN (15:21)
[2019-04-16] MEDS ORDERED: Acetaminophen 325 MG TABLET PO PRN (15:21)
[2019-04-16] MEDS ORDERED: Dextrose Gel 15 GM/37.5 ML TUBE PO PRN ×2 (15:25)
[2019-04-16] MEDS ORDERED: D5% in Water 1,000 ML IVC PRN (15:25)
[2019-04-16] MEDS ORDERED: *HR* Dextrose 50 % in Water (Syg) 50 ML SYRINGE IVP PRN (15:25)
[2019-04-16] MEDS ORDERED: 0.9 % Sodium Chloride 1,000 ML ONE (16:10)
[2019-04-16] MEDS ORDERED: Nitroglycerin 0.4 MG TAB.SUBL SL PRN (16:22)
--- NOTE | 2019-04-16 16:27 | Internal Med History&Physical ---
Date of Encounter: 04/16/19 Time of Encounter: 16:23 Internal Medicine - H&P: HPI Chief complaint: Chest pain Admitted From: Emergency Dept Plans for Post Hospital Care: Home History of present illness: Ms. Salas is a 54 year old female with a known past medical history of hypertension, hyperlipidemia, diabetes and anxiety patient has been having intermittent chest pain for a month who had stress test done on 03/09/19 which showed No ischemia or infarct on perfusion study, however pt still has been having intermittent CP. Pt stated initially she developed CP over Rt chest wall , now radiated to Left chest wall and sub sternal region. She also stated her CP 7/10 in severity, and radiating to left shoulder and arm. Her initial troponin was negative in the ER. EKG showed normal sinus rhythm with nonspecific ST, T changes. Past Med Surg Social Fam HX - Past Medical History Medical history: diabetes, hyperlipidemia, hypertension Psychiatric history: no psych history - Past Surgical History Surgical History: hysterectomy, orthopedic, other Additional surgical history: bladder sling x 3, tubal ligation, left arm tumor removal, right knee surgery to remove cyst - Social History Smoking Status: Never smoker Smokeless Tobacco Status: No Alcohol use: none Drug use: none - Family History Mother Living Status: Still Living Hx Family Cardiac Disorders: Yes Hx Family Cancer: Yes (Breast and kidney) Hx Family Endocrine Disorder: Yes Father Living Status: Still Living Hx Family Cardiac Disorders: Yes Hx Family Respiratory Disorders: Yes Hx Family Endocrine Disorder: Yes Internal Medicine - H&P: Meds Amitriptyline [Elavil] 25 mg PO HS 04/25/15 [History] Aspirin 81 mg PO DAILY 04/25/15 [History] Atorvastatin [Lipitor] 40 mg PO HS 04/25/15 [History] Levothyroxine [Synthroid] 100 mcg PO DAILY 04/25/15 [History] Losartan [Cozaar] 50 mg PO DAILY 04/25/15 [History] Metformin [Glucophage] 500 mg PO DAILY 04/25/15 [History] Metoprolol XL (24 HR) Succ [Toprol Xl] 150 mg PO DAILY 04/25/15 [History] Omeprazole [PriLOSEC] 20 mg PO DAILY 04/25/15 [History] Pramipexole [Mirapex] 0.25 mg PO HS 04/25/15 [History] Topiramate [Topamax] 100 mg PO DAILY 04/25/15 [History] Zolpidem [Ambien] 10 mg PO HS PRN 04/25/15 [History] Ezetimibe [Zetia] 10 mg PO DAILY 02/18/17 [History] Gabapentin [Neurontin] 600 mg PO HS 02/18/17 [History] Walker W Wheels [WHEELED WALKER] 1 each .ROUTE AD #1 each 02/20/17 [Rx] Citalopram [CeleXA] 20 mg PO DAILY 04/16/19 [History] Allergy/AdvReac Type Severity Reaction Status Date / Time carbidopa [From Sinemet] AdvReac Mild eleavates Verified 02/06/17 15:00 liver or kindey studies levodopa [From Sinemet] AdvReac Mild eleavates Verified 02/06/17 15:00 liver or kindey studies simvastatin AdvReac Mild eleavates Verified 02/06/17 15:00 liver and kindey studies All Systems PM: A 10-system review of systems was performed and is negative for pertinent findings except as documented above in the HPI. Review of systems: All the systems are reviewed everything is benign except the systems and symptoms I mentioned in the history of present illness - Constitutional Vitals: Temp Pulse Resp BP Pulse Ox 97.7 F 68 16 133/74 98 04/16/19 13:42 04/16/19 15:45 04/16/19 15:45 04/16/19 15:45 04/16/19 15:45 General appearance: Present: cooperative, A&O X 3, no acute distress, answers questions appropriately Exam: a - Head Head exam: Present: atraumatic, normal inspection - Neck Neck exam general surgery: Present: normal inspection, supple - Respiratory Respiratory exam: Present: decreased breath sounds. Absent: rales, respiratory distress, rhonchi, wheezes - Cardiovascular Cardiovascular exam: Present: RRR, +S1, +S2. Absent: tachycardia - GI/Abdominal GI/Abdominal exam: Present: normal bowel sounds, soft. Absent: rebound, rigid, tenderness - Extremities Exam Extremities exam: Present: normal inspection. Absent: calf tenderness, te nderness - Back Exam Back exam: Absent: CVA tenderness (L), CVA tenderness (R) - Neurological Exam Neurological exam: Present: alert, oriented X3 - Psychiatric Psychiatric exam: Present: normal affect, normal mood - Skin Skin exam: Absent: rash Internal Med - H&P Results - Labs CBC & Chem 7: 04/16/19 13:54 04/16/19 13:54 Labs: Short CBC 04/16/19 Range/Units 13:54 WBC 14.2 H (4.3-11.1) K/mcL Hgb 13.8 (11.5-15.4) g/dL Hct 43.2 (35.3-44.9) % Plt Count 316 (140-400) K/mcL Neutrophils # 6.8 (1.6-8.9) K/mcL BMP 04/16/19 13:54 Sodium 141 Potassium 3.5 Chloride 107 Carbon Dioxide 24 BUN 11 Creatinine 0.75 Glucose 52 L Calcium 9.1 Cardiac Enzymes 04/16/19 Range/Units 13:54 Troponin I < 0.03 (< 0.04) ng/mL Liver Function 04/16/19 Range/Units 13:54 Total Bilirubin 0.5 (0.3-1.0) mg/dL AST 18 (13-39) Units/L ALT 21 (7-52) Units/L Alkaline Phosphatase 102 (34-104) Units/L Albumin 4.4 (3.5-5.7) g/dL - Impressions ITS Impressions Chest X-Ray 04/16/19 13:54 IMPRESSION: No acute cardiopulmonary process. D/ / Cari Brice MD / Cari Brice MD Interpreting Provider: Cari Brice MD - Assessment and Plan (1) Chest pain Current Visit: Yes Status: Acute Assessment and plan: Will admit the pt into Tele for observation Will place pt on rounder and backer check serial troponin so far negative troponin EKG reviewed showed normal sinus rhythm and some nonspecific ST, T changes Cont ASA, metoprolol and Lipitor Started on Nitro PRN Since pt does have unstable angina / angina at rest - started her on heparin drip Will check FLP in AM reviewed her stress results from 02/27 consulted cardiology for further evaluation for possible LHC in AM Qualifiers: Chest pain type: chest pain due to myocardial ischemia Ischemic chest pain type: unstable angina pectoris Qualified Code(s): I20.0 - Unstable angina (2) Unstable angina Current Visit: Yes Status: Acute Assessment and plan: As above (3) HLD (hyperlipidemia) Current Visit: Yes Status: Acute Assessment and plan: Will check FLP in AM continue Lipitor for now Qualifiers: Hyperlipidemia type: unspecified Qualified Code(s): E78.5 - Hyperlipidemia, unspecified (4) Essential hypertension Current Visit: No Status: Chronic Assessment and plan: Stable blood pressure the current home medications (5) Type 2 diabetes mellitus Current Visit: No Status: Chronic Assessment and plan: On ADA diet will check hemoglobin A-1 C hold oral medication for now on insulin sliding scale Qualifiers: Diabetes mellitus group home insulin use: without group home use Diabetes mellitus complication status: without complication Qualified Code(s): E11.9 - Type 2 diabetes mellitus without complications - Time Spent With Patient Total time spent is greater than 50% in coordination of care (as documented) at patient's floor/unit and/or counseling patient:
[2019-04-16] MEDS: Insulin LISPRO 300 UNITS/3 ML VIAL SQ SCH ×2 (18:13→20:52)
[2019-04-16 20:29] LABS: Estimated Average Glucose 143 mg/dl
[2019-04-16] MEDS: Gabapentin 300 MG CAPSULE PO SCH (20:52)
[2019-04-17] MEDS: Insulin LISPRO 300 UNITS/3 ML VIAL SQ SCH ×4 (07:54→21:11)
--- NOTE | 2019-04-17 08:30 | Cardiology Consult Note ---
<Frank Masterson - Last Filed: 04/17/19 11:06> Date of Encounter: 04/17/19 Time of Encounter: 08:30 Assessment and Plan (1) Chest pain Current Visit: Yes Status: Acute Per Cardiology: Currently chest pain-free. Troponins negative 3. We will discontinue IV heparin drip. Negative stress test February 2019. We will check echo. Discussed and reviewed with Dr. Rosenbaum, plans for left heart catheterization from office visit from yesterday. All questions answered. Patient and family agreed with catheterization today. Discussed with Dr. Ram. Qualifiers: Chest pain type: chest pain due to myocardial ischemia Ischemic chest pain type: unstable angina pectoris Qualified Code(s): I20.0 - Unstable angina Discussion w patient/family: The assessment and plan as outlined above was discussed with the patient and/or family members who expressed understanding and agreement. All questions were answered. Thank you for involving us in the care of your patient. Please call with any questions. History of Present Illness Consult date: 04/17/19 Consult reason: CP Chief complaint: CP History of present illness: Ms. Salas is a 54 year old female with a relevant past medical history of HTN, HLD, DM 2, hypothyroidism, GERD. Cardiology consult for chest pain. Saw Dr. Rosenbaum and cardiology office appointment yesterday with increasing right sided to left-sided chest pain with lightheadedness and dizziness. Patient ex perienced chest pain and dizziness in office yesterday. ECG obtained at that time showed no signs of ischemia. Was directly admitted for catheterization. Patient currently denies any chest pain. She reports overall increased frequency occurring about 4 times per day and now up to about 8 times per day. Does report radiation down her left arm as well. Also indicates increasing dyspnea on exertion and fatigue. Has never had left heart catheterization. Past Med Surg Social Fam HX - Past Medical History Attestation: Yes The following information was validated with the patient. Source: patient, old records reviewed, obtained from family Medical history: diabetes, hyperlipidemia, hypertension Additional medical history: Osteoarthritis, insomnia, RLS, 3 bladders slings with 4th sling made from patient's own tissue, melanoma on back, gastroparesis, IBS. Psychiatric history: no psych history - Past Surgical History Surgical History: hysterectomy, orthopedic, other Additional surgical history: bladder sling x 3, tubal ligation, left arm tumor removal, right knee surgery to remove cyst - Social History Smoking Status: Never smoker Smokeless Tobacco Status: No Alcohol use: none Drug use: none - Family History Mother Living Status: Still Living Hx Family Cardiac Disorders: Yes Hx Family Cancer: Yes (Breast and kidney) Hx Family Endocrine Disorder: Yes Father Adopted: No Living Status: Still Living Hx Family Cardiac Disorders: Yes Hx Family Respiratory Disorders: Yes Hx Family Endocrine Disorder: Yes Medications and Allergies Aspirin 81 mg PO DAILY 04/25/15 [History] Omeprazole [PriLOSEC] 20 mg PO DAILY 04/25/15 [History] Zolpidem [Ambien] 10 mg PO HS PRN 04/25/15 [History] Gabapentin [Neurontin] 600 mg PO HS 02/18/17 [History] Amitriptyline [Elavil] 25 mg PO HS 04/16/19 [History] Atorvastatin [Lipitor] 40 mg PO QPM 04/16/19 [History] Cholecalciferol (Vitamin D3) [Dialyvite Vitamin D] 10,000 units PO DAILY 04/16/19 [History] Citalopram [CeleXA] 20 mg PO DAILY 04/16/19 [History] Glimepiride [Amaryl] 2 mg PO DAILY 04/16/19 [History] Levothyroxine [Synthroid] 125 mcg PO QAM 04/16/19 [History] Meloxicam 15 mg PO DAILY PRN 04/16/19 [History] Metformin HCl 1,000 mg PO BID 04/16/19 [History] Metoprolol Succinate [Toprol Xl] 150 mg PO DAILY 04/16/19 [History] Multivitamin [Daily Multiple Vitamin] 1 tab PO DAILY 04/16/19 [History] Nystatin POWDER [Nystop] 1 appl TP BID PRN 04/16/19 [History] Oxybutynin Chloride [Oxybutynin Chloride ER] 10 mg PO DAILY 04/16/19 [History] Pramipexole [Mirapex] 0.25 mg PO HS 04/16/19 [History] Rizatriptan Benzoate [Maxalt Environmental [employer] Technician] 10 mg PO PRN PRN 04/16/19 [History] Topiramate 50 mg PO BID 04/16/19 [History] Allergy/AdvReac Type Severity Reaction Status Date / Time carbidopa [From Sinemet] AdvReac Mild eleavates Verified 02/06/17 15:00 liver or kindey studies levodopa [From Sinemet] AdvReac Mild eleavates Verified 02/06/17 15:00 liver or kindey studies simvastatin AdvReac Mild eleavates Verified 02/06/17 15:00 liver and kindey studies All Systems Review: The remainder of the systems were reviewed and are negative - Constitutional Constitutional: fatigue - Cardiovascular Cardiovascular: as per HPI, chest pain at rest, chest pain with exertion, dyspnea on exertion Physical Examination Vital Signs, Last 4 Hours Temp Pulse Resp BP Pulse Ox 04/17/19 06:48 97.6 F 63 15 156/80 98 General: Conversant, No Apparent Distress HEENT: Atraumatic, Normocephaly, Mucus Membranes Moist Neck: No JVD, Normal carotid pulses Cardiac: Reg Rate and Rhythm, Normal S1 and S2, No Murmur Lungs: Normal Breath Sounds, No Wheeze, Rales, Rhonchi Neuro: Alert and responsive, No focal deficits noted Abdomen: Soft, Non-Tender Skin: No rashes noted on visualized skin Musculoskeletal: No Chest Wall Tenderness Extremities: No Clubbing, No Cyanosis, No Edema, Normal Pulses Results 04/16/19 13:54 04/16/19 13:54 Lab Results Laboratory Tests 04/16/19 04/16/19 04/16/19 13:54 13:54 13:54 Hgb 13.8 Hct 43.2 INR 0.9 Creatinine 0.75 Est GFR (Non-Af Amer) > 60 Hemoglobin A1c AST 18 ALT 21 Troponin I < 0.03 LDL Cholesterol, Calc 04/16/19 04/16/19 04/17/19 13:54 20:40 03:31 Hgb Hct INR Creatinine Est GFR (Non-Af Amer) Hemoglobin A1c 6.6 H AST ALT Troponin I < 0.03 < 0.03 LDL Cholesterol, Calc 04/17/19 03:31 Hgb Hct INR Creatinine Est GFR (Non-Af Amer) Hemoglobin A1c AST ALT Troponin I LDL Cholesterol, Calc 71 ITS Impressions Chest X-Ray 04/16/19 13:54 IMPRESSION: No acute cardiopulmonary process. D/ / Cari Brice MD / Cari Brice MD Interpreting Provider: Cari Brice MD Active Medications Acetaminophen (Tylenol) 650 mg PO Q6HR PRN PRN Reason: Mild Pain/Fever Stop: 10/16/19 15:22 Hydrocodone Bitart/Acetaminophen ([place] 5-325 Mg) 1 tab PO Q6HR PRN PRN Reason: Moderate Pain Stop: 10/16/19 15:22 Amitriptyline HCl (Elavil) 25 mg PO HS [facility] Stop: 10/16/19 21:01 Last Admin: 04/16/19 20:52 Dose: 25 mg Documented by: Aspirin (Aspirin) 81 mg PO DAILY [facility] Stop: 10/17/19 09:01 Atorvastatin Calcium (Lipitor) 40 mg PO HS [facility] Stop: 10/16/19 21:01 Last Admin: 04/16/19 20:52 Dose: 40 mg Documented by: Citalopram Hydrobromide (Celexa) 20 mg PO DAILY [facility] Stop: 10/17/19 09:01 Dextrose/Water (Dextrose 50% (Syg)) 25 ml IVP AD PRN PRN Reason: Hypoglycemia Stop: 10/16/19 15:26 Docusate Sodium (Colace) 100 mg PO BID PRN PRN Reason: Constipation Stop: 10/16/19 21:01 Gabapentin (Neurontin) 600 mg PO HS [facility] Stop: 10/16/19 21:01 Last Admin: 04/16/19 20:52 Dose: 600 mg Documented by: Glucagon (Glucagen) 1 mg IM ONCE PRN PRN Reason: Hypoglycemia Stop: 10/16/19 15:26 Glucose (Gluctose) 15 gm PO ONCE PRN PRN Reason: Hypoglycemia Stop: 10/16/19 15:26 Glucose (Gluctose) 30 gm PO ONCE PRN PRN Reason: Hypoglycemia Stop: 10/16/19 15:26 Heparin Sodium (Porcine) (Heparin) 4,000 unit IVP Q6HR PRN PRN Reason: SEE COMMENTS Stop: 10/16/19 14:20 Heparin Sodium (Porcine) (Heparin) 2,000 unit IVP Q6H PRN PRN Reason: SEE COMMENTS Stop: 10/16/19 14:20 Heparin Sodium/Dextrose (Heparin 25,000 Unit/250 Ml D5w) 25,000 unit in 250 mls @ 9.954 mls/hr IVC .Q24H [facility]; Protocol Stop: 10/16/19 14:31 Last Titration: 04/17/19 04:26 Dose: 10.4 unit/kg/hr, 10 mls/hr Documented by: Dextrose (Dextrose 5%) 1,000 mls @ 100 mls/hr IVC .Q10H PRN PRN Reason: HYPOGLYCEMIA Stop: 10/16/19 15:26 Insulin Human Lispro (Humalog) 0 units SQ HS [facility]; Protocol Stop: 10/16/19 21:01 Last Admin: 04/16/19 20:52 Dose: Not Given Documented by: Insulin Human Lispro (Humalog) 0 units SQ TIDAC [facility]; Protocol Stop: 10/16/19 16:31 Last Admin: 04/17/19 07:54 Dose: Not Given Documented by: Levothyroxine Sodium (Synthroid) 100 mcg PO 0630 [facility] Stop: 10/17/19 06:31 Last Admin: 04/17/19 05:27 Dose: Not Given Documented by: Losartan Potassium (Cozaar) 50 mg PO DAILY [facility]; Protocol Stop: 10/17/19 09:01 Metoprolol Succinate (Toprol Xl) 150 mg PO DAILY [facility] Stop: 10/17/19 09:01 Naloxone HCl (Narcan) 0.4 mg IVP Q2MPRN PRN PRN Reason: SEE COMMENTS Stop: 10/16/19 15:22 Nitroglycerin (Nitroglycerin) 0.4 mg SL Q5MPRN PRN PRN Reason: Chest Pain Stop: 10/16/19 16:23 Omeprazole (Prilosec) 20 mg PO 0730 [facility]; Protocol Stop: 10/17/19 07:31 Ondansetron HCl (Zofran) 4 mg IVP Q8HR PRN PRN Reason: Nausea And Vomiting Stop: 10/16/19 15:22 Pharmacy Profile Note (Patient Taking Own Medication) 0 each PO DAILY [facility] Stop: 10/17/19 09:01 Pramipexole Dihydrochloride (Mirapex) 0.25 mg PO [facility] Stop: 10/16/19 21:01 Last Admin: 04/16/19 20:52 Dose: 0.25 mg Documented by: Topiramate (Topamax) 100 mg PO DAILY [facility] Stop: 10/17/19 09:01 Zolpidem Tartrate (Ambien) 10 mg PO HS PRN; Protocol PRN Reason: Sleep Stop: 10/16/19 15:25 - Imaging and Cardiology Stress Test: report reviewed Echo: pending Cardiac cath: pending Consult Discharge Plan - Plan Referrals: Mitchell Aragon MD [Primary Care Provider] - 04/23/19 2:00 pm () <Jess Ram - Last Filed: 04/17/19 14:58> Date of Encounter: 04/17/19 - Attending Attestation I have personally performed a face to face evaluation on this patient. I have reviewed and agree with the care plan. History and Exam by me shows: 54-year-old female presents from the cardiology office with unstable angina for [facility] today. Risks benefits and alternatives discussed patient she agrees to proceed. Assessment and Plan Discussion w patient/family: The assessment and plan as outlined above was discussed with the patient and/or family members who expressed understanding and agreement. All questions were answered. Thank you for involving us in the care of your patient. Please call with any questions. History of Present Illness History of present illness: Ms. Salas is a 54 year old female All Systems Review: The remainder of the systems were reviewed and are negative Physical Examination Vital Signs, Last 4 Hours Temp Pulse Resp BP Pulse Ox 04/17/19 11:14 98.3 F 62 13 172/81 98 Results 04/16/19 13:54 04/16/19 13:54 Lab Results 04/16/19 04/16/19 04/17/19 13:54 20:40 03:31 INR 0.9 APTT 33.9 Troponin I < 0.03 < 0.03
--- NOTE | 2019-04-17 08:50 | Electrocardiograph Report ---
Paoli Lamiecco Test Date: 2019-04-16 Pat Name: Reba Salas Department: [id number] Room: 3B43 Gender: F [employer]: : 1965 Requested By: Lynn Ruiz Order Number: [id number] Reading MD: Marshall June Measurements Intervals [place] Rate: 69 P: 54 AK: 187 QRS: 24 QRSD: 100 T: 58 QT: 427 QTc: 458 Interpretive Statements Sinus rhythm Consider left atrial enlargement Electronically Signed On 04-17-2019 8:48:49 EDT by Marshall June
[2019-04-17] MEDS: Aspirin 81 MG TAB.CHEW PO SCH (10:53)
[2019-04-17] MEDS: (Ezetimibe [Zetia] 10 MG) PO SCH (10:53)
[2019-04-17] MEDS: Topiramate 100 MG TABLET PO SCH (10:53)
[2019-04-17] MEDS: Metoprolol XL (24 HR) Succ 50 MG TAB.ER.24H PO SCH (10:53)
--- NOTE | 2019-04-17 12:01 | Event Note ---
Date of Encounter: 04/17/19 Time of Encounter: 12:00 HAS-BLED Score - Score No Risk: HAS-BLED Score=0, no bleeding risk
--- NOTE | 2019-04-17 13:25 | Pre-Sedation Evaluation ---
Pre-sedation evaluation - Pre-sedation checklist Date of procedure: 04/17/19 Procedure: c Recent Vitals: Last Vital Signs Temp 98.3 F 04/17/19 11:14 Pulse 62 04/17/19 11:14 Resp 13 04/17/19 11:14 BP 172/81 04/17/19 11:14 Pulse Ox 98 04/17/19 11:14 Previous reaction to sedatives/anesthetics: No Dietary Status: NPO after Midnight ASA Classification *see protocol: CLASS II-Mild systemic disease Plan of Care: Pt appropriate candidate for procedure/moderate/conscious sedation, Risks/benefits of procedure/sedation discussed w/ patient/family Cardiac Registry (Cardio Only) - Functional Capacity Functional Capacity: >=4 METS with symptoms - Clincal Frailty Scale Clinical Frailty Scale: Managing Well
[2019-04-17] MEDS ORDERED: Iopamidol 125 ML INFUS..BTL ONE (14:00)
[2019-04-17] MEDS ORDERED: *HR* Heparin 10,000 UNIT/10 ML VIAL ONE (14:00)
[2019-04-17] MEDS ORDERED: Heparin 1,000 UNITS/500 mL 500 ML ONE (14:00)
[2019-04-17] MEDS ORDERED: 0.9 % Sodium Chloride 1,000 ML ONE (14:00)
[2019-04-17] MEDS ORDERED: Nitroglycerin 1,000 MCG/10 ML VIAL IV ONE (14:00)
[2019-04-17] MEDS ORDERED: *HR* Midazolam HCl 2 MG/2 ML VIAL ONE (14:19)
[2019-04-17] MEDS ORDERED: *HR* FentaNYL (PF) 100 MCG/2 ML VIAL ONE (14:19)
[2019-04-17] MEDS ORDERED: Verapamil 5 MG/2 ML VIAL ONE (14:42)
--- NOTE | 2019-04-17 15:20 | Internal Med Progress Note ---
Hospitalist Progress Note - Encounter Date of Encounter: 04/17/19 Time of Encounter: 15:18 - Subjective Interval History: Ms. Salas is a 54 year old female with a known past medical history of hypertension, hyperlipidemia, diabetes and anxiety patient has been having intermittent chest pain for a month who had stress test done on 03/09/19 which showed No ischemia or infarct on perfusion study, however pt still has been having intermittent CP. Pt stated initially she developed CP over Rt chest wall , now radiated to Left chest wall and sub sternal region. She also stated her CP 7/10 in severity, and radiating to left shoulder and arm. Her initial troponin was negative in the ER. EKG showed normal sinus rhythm with nonspecific ST, T changes. She was admitted in the hospital and placed on court recording monitor. She was also continued on heparin drip. Her serial troponin came back as negative. She denied any active chest pain today. - Exam Vitals: Temp Pulse Resp BP Pulse Ox 98.3 F 62 13 172/81 98 04/17/19 11:14 04/17/19 11:14 04/17/19 11:14 04/17/19 11:14 04/17/19 11:14 Exam: Gen: Alert, awake, Oriented to time,place and person Chest: Diminished breath sounds B/L, No wheezing, No crackles, No rales Heart: S1S2+ RRR No murmurs Abd: Soft, NT, BS +, No organomegaly Ext: No edema, pulses are palpable, No calf tenderness Neuro : No acute focal neuro deficits noticed Skin: No rash. - Assessment and Plan (1) Chest pain Current Visit: Yes Status: Acute Assessment and Plan: Serial troponin's were negative denied any active chest pain now cardiology evaluated the patient requested to stop heparin drip scheduled for [facility] today continue on court recording monitor Cont ASA, metoprolol and Lipitor Cont Nitro PRN (2) Unstable angina Current Visit: Yes Status: Acute Assessment and Plan: As above (3) HLD (hyperlipidemia) Current Visit: Yes Status: Acute Assessment and Plan: Reviewed FLP - LDL @ 71 Cont home dose of Lipitor (4) Essential hypertension Current Visit: No Status: Chronic Assessment and Plan: Stable blood pressure the current home medications (5) Type 2 diabetes mellitus Current Visit: No Status: Chronic Assessment and Plan: On ADA diet will check hemoglobin A-1 C held oral medication for now on insulin sliding scale - Time Spent with Patient Total time spent is greater than 50% in coordination of care (as documented) at patient's floor/unit and/or counseling patient: Internal Medicine: Result - Labs CBC & Chem 7: 04/16/19 13:54 04/16/19 13:54 Labs: Cardiac Enzymes 04/16/19 04/17/19 Range/Units 20:40 03:31 Troponin I < 0.03 < 0.03 (< 0.04) ng/mL - ABG Interpretation ABG results: PT/INR, D-dimer PT 10.5 Seconds (9.4-12.1) 04/16/19 13:54 - Impressions Impressions Echocardiogram 04/17/19 08:31 Impressions: LVEF 60%. Normal LV chamber size, wall thickness and function. Mild left ventricular diastolic dysfunction. Normal right ventricular structure and function. No evidence of a PFO with agitated saline contrast. No evidence of pulmonary hypertension. No significant valvular dysfunction. Left Ventricular Wall Motion: Rest Echo Findings All wall segments showed normal motion. Findings: Study Quality * Technically adequate exam. ECG Findings * Normal sinus rhythm. Left Ventricle * LVEF 60%. * Normal LV chamber size, wall thickness and function. * Mild left ventricular diastolic dysfunction. Right Ventricle * Normal right ventricular structure and function. Left Atrium * Normal left atrial size. Right Atrium * Normal right atrial size. Interatrial Septum * No evidence of a PFO with agitated saline contrast. Aortic Valve * Trileaflet aortic valve with normal function. * No aortic regurgitation. * No aortic stenosis. Mitral Valve * Normal mitral valve structure and function. * No mitral regurgitation. * No mitral stenosis. Tricuspid Valve * Normal tricuspid valve structure and function. * Trace tricuspid regurgitation. * No evidence of pulmonary hypertension. Pulmonic Valve * Pulmonic valve is not well visualized. * No pulmonic regurgitation. Aorta * Normally sized aortic root. Pericardium * The pericardium appears normal. IVC * Normal IVC dimensions and inspiratory collapse. Pulmonary Artery * Normal visualized portions of the main pulmonary artery. Consult Discharge Plan - Plan Referrals: Mitchell Aragon MD [Primary Care Provider] - 04/23/19 2:00 pm () (1) Chest pain Qualifiers: Chest pain type: chest pain due to myocardial ischemia Ischemic chest pain type: unstable angina pectoris Qualified Code(s): I20.0 - Unstable angina (3) HLD (hyperlipidemia) Qualifiers: Hyperlipidemia type: unspecified Qualified Code(s): E78.5 - Hyperlipidemia, unspecified (5) Type 2 diabetes mellitus Qualifiers: Diabetes mellitus snf insulin use: without snf use Diabetes mellitus complication status: without complication Qualified Code(s): E11.9 - Type 2 diabetes mellitus without complications
--- NOTE | 2019-04-17 15:25 | Invasive Diagnostic Lab Proc ---
Name: Reba Salas Date of Study: 04/17/2019 Date: 1965 Ht: 63.0in Medical Record#: [id number] Age: 54 Wt: 213.85lb Gender: Female BSA: 1.99 Order #: [id number] BMI: 37.89 Physicians Procedure Physician: Jame Rosenbaum MD, [facility] Referring MD: Referring MD: Staff Name Position Time In Tamela Pal RT (R) Monitor 02:28 PM StefRadha RT (R) Scrub 02:28 PM Power Greenberg RN Administrative Personal Assistant 02:28 PM Aria Whitfield RT (R) Monitor 02:28 PM Estefania Olmedo RN Administrative Personal Assistant 02:28 PM Procedures Performed Procedure L HRT ARTERY/VENTRICLE ANGIO PRQ CARD JOSE MARIA STENT W/ANGIO 1 VSL Pre-Procedure Checklist Informed consent is complete signed and on chart. H&P is on chart. ID band is on and ID verified with patient. Patient NPO for procedure The procedure was described for the patient and questions were answered. Blood Pressure: 156/80 ECG is on chart. Plan of Care Patient will tolerate the procedure without complications. Adequate level of comfort will be maintained. Hemodynamics will remain stable Patient will recover from procedure without complications. Respiratory function will be maintained. Cardiac rhythm will remain stable. Patient temperature will be maintained. Patient and/or family have verbalized understanding of the procedure. Patient Education Chief Complaint/Reason for Test: Cardiac Cath Developmental Category: Adult (18-64 years) Developmentally Appropriate for Age: Yes Learning Barriers: None Education Needs: Procedure Education Method: Verbal Information Taught: Cardiac Cath Educational Evaluation: Able to repeat information Intravenous Access Time IV Size Location DC'd Fluid/Drip Rate Units RN 10:20 AM 20g 1 1/4" Patent On Arrival Lt Antecubital 0.9NaCl 25 ml/hr Power Greenberg RN Allergies simvastatin carbidopa levodopa Vital Signs Time BP (mmHg) HR (bpm) O2 Sat. RR (bpm) LOC 10:20 AM 156 / 80 63 98 % 15 5 = Fully awake and oriented or at pre-proc level 02:30 PM / % 5 = Fully awake and oriented or at pre-proc level 02:30 PM / % 5 = Fully awake and oriented or at pre-proc level 02:39 PM / % 4 = Oriented but drowsy 02:54 PM / % 4 = Oriented but drowsy 02:38 PM 184 / 104 66 99 % 16 02:43 PM 164 / 97 63 97 % 16 02:48 PM 165 / 99 62 98 % 13 02:53 PM 155 / 82 65 96 % 13 02:58 PM 155 / 98 65 97 % 16 03:03 PM 163 / 98 64 98 % 16 03:08 PM 160 / 92 64 100 % 16 Procedural Medications Time Medication Dose Units Method Given By 02:39 PM Oxygen 2 L/min nasal cannula Power Greenberg RN 02:39 PM Versed 2 mg Intravenous Power Greenberg RN 02:39 PM Fentanyl 50 mcg Intravenous Power Greenberg RN 02:47 PM Lidocaine 2% 0.5 ml Subcutaneous Jame Rosenbaum MD, FAC 02:50 PM Heparin 4000 units Nitroglycerin 200 mcg Verapamil 2.5 mg Intraarterial Jame Rosenbaum MD, FACC 03:08 PM Heparin 1000 units Intravenous Power Greenberg RN 03:08 PM Plavix 600 mg Orally Power Greenberg RN ASA Classification: CLASS II- Mild systemic disease (i.e. well-controlled diabetes, hypertension, asthma, cigarette smoking) Gogo Score Preprocedure Postprocedure Activity 2- Moves 4 extremities sustained head lift Activity 2- Moves 4 extremities sustained head lift Circulation 2- SBP +/= 20 points of pre-anesthetic level Circulation 2- SBP +/= 20 points of pre-anesthetic level Consciousness 2- Awake and alert oriented x 3 Consciousness 2- Awake and alert oriented x 3 O2 Saturation 2- Able to maintain O2 satruation of 92% on room air O2 Saturation 2- Able to maintain O2 satruation of 92% on room air Respiratory 2- Able to deep breathe and cough well Respiratory 2- Able to deep breathe and cough well Total Score 10 Total Score 10 Contrast Agent: Isovue Diagnostic Contrast: 75 ml Total Contrast: 75 ml Fluoro Dose: 30 mGy Activated Clotting Time Time Seconds to Clot 03:08 PM 294 Procedure Log Time Note Enter By 02:28 PM Pt arrived to lab intern 2 at 14:28 twilson 02:28 PM Physician arrived 14:28 tw: PM Meet and greet completed 02:28 PM Sign in performed according to hospital policy. Informed consent was obtained. : PM Tamela Pal RT (R) Position: Monitor Time in: 14:28 twilson 02:28 PM Radha Finch RT (R) Position: Scrub Time in: : twilson 02:28 PM Power Greenberg RN Position: Administrative Personal Assistant Time in: : twilson 02:29 PM Aria Whitfield RT (R) Position: Monitor Time in: : twilson 02:29 PM Patient charges- Angio tray pack, Navilyst 3mm J, Pulse Oximetry and ACIST tubing and transducer twilson 02:29 PM Case Delayed no twilson 02:30 PM Time: 14:30 Patient comfortable and pain free: Yes twilson :30 PM Time: 14:30LOC: 5 = Fully awake and oriented or at pre-proc level twilson 02:35 PM Procedure start 14:34 twilson 02:35 PM CathStat 02:37 PM Vitals capture started with the following parameters, Patient=Adult, Interval=5 min, Initial Vnxppdws=914 mmHg, Deflation Rate=3 mmHg, Cuff placed on Right Arm 02:37 PM Recorded ECG: HR=66 Condition=Condition 1 02:38 PM HR=66 bpm, XYAD=515/104 mmhg, SpO2=99.0 %, Resp=16 B/min 02:39 PM Hair removed from procedure site in procedure lab using clippers. Right wrist and Right groin prepped with Chloraprep by Estefania Olmedo RN, then patient was draped. Skin intact. twilson 02:39 PM Time: 14:39 Oxygen on at 2 L/min per nasal cannula by Power Greenberg RN twilson 02:39 PM Time: 14:39 Versed 2 mg Intravenous Given by Power Greenberg RN twilson 02:39 PM Time: 14:39 Fentanyl 50 mcg Intravenous Given by Power Greenberg RN twilson 02:39 PM Time: 14:30 Patient comfortable and pain free: Yes twilson 02:39 PM Time: 14:30LOC: 5 = Fully awake and oriented or at pre-proc level twilson 02:40 PM ASA Class CLASS II- Mild systemic disease (i.e. well-controlled diabetes, hypertension, asthma, cigarette smoking) twilson 02:43 PM HR=63 bpm, HWHV=178/97 mmhg, SpO2=97.0 %, Resp=16 B/min 02:45 PM Pressure channel 1 zeroed. 02:47 PM Time out was performed according to hospital policy. Conscious sedation and anesthesia was achieved (see medication log with in this report above) twilson 02:47 PM Time: 14:47 0.5 ml Lidocaine 2% to right radial Subcutaneous Given by Jame Rosenbaum MD, [facility] twilson 02:48 PM HR=62 bpm, KNNR=601/99 mmhg, SpO2=98.0 %, Resp=13 B/min 02:50 PM Access obtained by percutaneous puncture. 5/6Fr 10cm Terumo Glidesheath sheath placed in right Radial artery. [id number] twilson 02:50 PM Time: 14:50 Patient given 4,000 units Heparin, 200 mcg Nitroglycerin, and 2.5 mg Verapamil Intraarterial by Jame Rosenbaum MD, [facility]. This is given to reduce risk of vessel spasm and thrombosis. twilson 02:50 PM 5Fr TIG catheter inserted over the wire DN twilson 02:51 PM Wire removed twilson 02:51 PM Recorded Pressure: Ao, HR=66, Condition=Condition 1 (Aorta) Ao 135/84/106 02:53 PM Recorded Pressure: Ao, HR=66, Condition=Condition 1 (Aorta) Ao 121/86/103 02:53 PM HR=65 bpm, MDDG=535/82 mmhg, SpO2=96.0 %, Resp=13 B/min 02:53 PM RCA angiography performed in multiple views. twilson 02:53 PM LCA angiography performed in multiple views. twilson 02:53 PM Recorded Pressure: Ao, HR=65, Condition=Condition 1 (Aorta) Ao 119/76/100 02:53 PM Recorded Pressure: Ao, HR=68, Condition=Condition 1 (Aorta) Ao 123/85/104 02:54 PM Wire reinserted. twilson 02:54 PM Catheter removed twilson 02:54 PM Time: 14:39 Patient comfortable and pain free: Yes twilson 02:54 PM Time: 14:39LOC: 4 = Oriented but drowsy twilson 02:55 PM 5Fr Pigtail catheter inserted over the wire DN twilson 02:55 PM Catheter crossed the aortic valve and was selectively placed in the left ventricle. Pressures recorded on pullback for left heart catheterization. twilson 02:55 PM Wire removed twilson 02:55 PM Pressure channel 1 zeroed. 02:55 PM Recorded Pressure: LV, HR=67, Condition=Condition 1 (Left Ventricle) LV 153/8/16 02:55 PM Bolus angiogram of left Ventricle complete: 10 ml/sec for a total of 20 mls twilson 02:56 PM Recorded Pressure: LV, Ao, HR=68, Condition=Condition 1 (Left Ventricle) LV 148/9/13, (Aorta) Ao 135/74/102 02:56 PM Wire reinserted. twilson 02:56 PM Catheter removed twilson 02:56 PM Coronary Dominance: right twilson 02:57 PM Lesion found in Mid LAD. Pre Stenosis: 80 Pre MONALISA Flow: 3: Complete and Brisk Flow/Perfusion twilson 02:57 PM Mid/Distal Left Anterior Descending Coronary Artery and diagonal branches with 80% stenosis. If graft is supplying this area, 0 % stenosis twilson 02:57 PM Inflation device was opened. twilson 02:57 PM PCI Status Urgent twilson 02:57 PM PCI lesion in Mid LAD. twilson 02:57 PM 6Fr CLS 3.0 Runway guide catheter was used to cannulate the PCI vessel successfully. reused? No twilson 02:58 PM HR=65 bpm, YBPV=105/98 mmhg, SpO2=97.0 %, Resp=16 B/min 02:58 PM .014 PT Graphix 182cm guide wire across target lesion- successful. reused? No twilson 03:00 PM Recorded Pressure: Ao, HR=64, Condition=Condition 1 (Aorta) Ao 157/89/116 03:01 PM 3.0mm x 16mm Synergy drug-eluting stent across target lesion- successful Lot #[id number] twilson 03:01 PM Recorded Pressure: Ao, HR=67, Condition=Condition 1 (Aorta) Ao 151/85/113 03:02 PM Recorded Pressure: Ao, HR=66, Condition=Condition 1 (Aorta) Ao 144/96/119 03:02 PM Stent deployed @ 12 toño for 17 seconds twilson 03:03 PM HR=64 bpm, KGDV=497/98 mmhg, SpO2=98.0 %, Resp=16 B/min 03:03 PM Stent delivery system removed intact. twilson 03:03 PM 3.5 mm x 8mm NC Trek Rx balloon across target lesion- successful. reused? No twilson 03:04 PM Drawing an ACT. twilson 03:04 PM Recorded Pressure: Ao, HR=66, Condition=Condition 1 (Aorta) Ao 154/96/122 03:05 PM Balloon inflated @ 16 toño for 15 seconds twilson 03:07 PM Balloon catheter removed intact. twilson 03:07 PM Guide wire removed intact. twilson 03:07 PM Wire reinserted. twilson 03:07 PM Guide catheter and wire removed, intact. twilson 03:07 PM Procedure completed at 15:07 04/17/2019 twilson 03:07 PM Did you address MONALISA flow and Dominance? YesCoronary Dominance: right twilson 03:07 PM Isovue 370 - 125ml,1 Bottle(s) used. twilson 03:08 PM HR=64 bpm, OGBK=153/92 mmhg, QmP4=752.0 %, Resp=16 B/min 03:08 PM Time: 15:08 Heparin 1000 units Intravenous [facility] 03:08 PM Time: 15:08 Plavix 600 mg Orally Given by Power Greenberg RN twilson 03:08 PM At 15:08 the ACT was 294 seconds. twilson 03:09 PM Time: 14:54 Patient comfortable and pain free: Yes twilson 03:10 PM Time: 14:54LOC: 4 = Oriented but drowsy twilson 03:10 PM Sign out completed: Radiation Dose 249.02 mGy, 30.0 Gy/cm2 Fluoro Time: 4.6 Isovue 370 - 200ml contrast 75 ml given by Jame Rosenbaum MD, [facility]. Complications: None. The patient was discharged out of the lab intern in stable condition. Sedation minutes 31. Cardiac Rehab Consult needed: Yes. Confirmed administered medications: Yes twilson 03:11 PM Arterial sheath pulled, Vasc Band closure device used and was Successful S/N. twilson 03:11 PM 12 ml air in Vasc Band. twilson 03:11 PM Estimated Blood Loss: minimal twilson 03:11 PM Post ECG NSR twilson 03:11 PM Post Blood Pressure 160/92 twilson 03:11 PM 15:11 Post Pulses Bilateral DP & PT 2+ twilson 03:11 PM 15:11 Post Pulses Bilateral radial 2+ twilson 03:11 PM Information taught Cardiac Cath, PCI, and Vasc Band twilson 03:12 PM Education needs Procedure, Plan of Care, and Responsibilities of Patient in Care twilson 03:12 PM Learning barriers :None twilson 03:12 PM Education Methods Verbal twilson 03:12 PM Education evaluation Able to repeat information twilson 03:12 PM Site status No bleeding/ No Hematoma - Rt Wrist as reported by Radha Finch RT (R) at 15:12 twilson 03:12 PM Delay to floor No twilson 03:12 PM No family present at this time. twilson 03:17 PM Report given to Christie ARMAS Pt taken to Room #43. 15:17 twilson 03:17 PM Patient out of room: 15:17 twilson Complications Complication None Hemodynamics Pressures Site Systolic/A Wave Diastolic/V Wave Mean AO 135 84 106 AO 121 86 103 AO 119 76 100 AO 123 85 104 LV 153 8 16 LV 148 9 13 AO 135 74 102 AO 157 89 116 AO 151 85 113 AO 144 96 119 AO 154 96 122 Post Procedure Information Blood Pressure: 160/92 mmHg Rhythm: NSR Post procedural instructions were given Closure Device Time Device Success/Fail 04/17/2019 3:14:00 PM Mechanical Compression Successful Site Checks Time Location Status Staff Sheath In? Note 03:12 PM Rt Wrist No bleeding/ No Hematoma Radha Finch RT (R) Pulses Time Site Pre-Procedure Post-Procedure Note 04/17/2019 10:20:00 AM Bilateral DP 2+ 04/17/2019 10:20:00 AM Bilateral radial 2+ 3:11:00 PM Bilateral DP & PT 2+ 3:11:00 PM Bilateral radial 2+ Updated by RT Lissette (R) on 04/17/2019 3:18:05 PM electronically signed on 04/17/2019 3:18:29 PM with status of Final
[2019-04-17] MEDS: Gabapentin 300 MG CAPSULE PO SCH (21:11)
[2019-04-18] MEDS: Insulin LISPRO 300 UNITS/3 ML VIAL SQ SCH (08:27)
--- NOTE | 2019-04-18 08:31 | Cardiology Progress Note ---
Date of Encounter: 04/18/19 Time of Encounter: 08:30 Assessment and Plan (1) CAD (coronary artery disease) Current Visit: Yes Status: Acute Per Cardiology: Trops - x3. Echo EF 60%. S/p LHC: Lesion Findings/Interventions * Left Main Coronary Artery The LMCA is angiographically free of disease. * Left Anterior Descending There is a 16 mm long, 70-80% stenosis in the Mid LAD. The lesion has a MONALISA flow of 3 and has no thrombus present. An intervention was performed on the Mid LAD with a final stenosis of 0%. There were no lesion complications. The final MONALISA flow was 3. * Circumflex The Circumflex is angiographically free of significant disease. The 1st Marginal is angiographically free of significant disease. * Right Coronary Artery The RCA is angiographically free of significant disease. The Right PDA is angiographically free of significant disease. On aspirin, Plavix, statin, ARB, BB. Postprocedure education provided. All questions answered. Importance of dual antiplatelet therapy for at least 1 year reinforced. Patient verbalized understanding and agreed with plan. Cardiology signing off, reconsult as needed, follow-up arranged. Qualifiers: Coronary Disease-Associated Artery/Lesion type: samish artery [place] vs. transplanted heart: samish heart Associated angina: without angina Qualified Code(s): I25.10 - Atherosclerotic heart disease of samish coronary artery without angina pectoris Discussion w patient/family: The assessment and plan as outlined above was discussed with the patient and/or family members who expressed understanding and agreement. All questions were answered. Thank you for involving us in the care of your patient. Please call with any questions. Subjective Principal diagnosis: CP, CAD Interval history: Denies any concerns or complaints overnight. Denies any chest pain, short of breath, palpitations. Denies any concerns from her right wrist site. Objective Selected Entries 04/18/19 03:47 Temperature 97.6 F Pulse Rate 64 Respiratory Rate 14 Blood Pressure 162/80 O2 Sat by Pulse Oximetry 97 Oxygen Delivery Method Room Air General: Conversant, No Apparent Distress HEENT: Atraumatic, Normocephaly, Mucus Membranes Moist Neck: No JVD, Normal carotid pulses Cardiac: Reg Rate and Rhythm, Normal S1 and S2, No Murmur Lungs: Normal Breath Sounds, No Wheeze, Rales, Rhonchi Neuro: Alert and responsive, No focal deficits noted Abdomen: Soft, Non-Tender Skin: No rashes noted on visualized skin, Other (Right wrist site dry and intact, no hematoma, no ecchymosis, no bleeding, right radial pulse 2+ palpable) Musculoskeletal: No Chest Wall Tenderness Extremities: No Clubbing, No Cyanosis, No Edema, Normal Pulses Results 04/16/19 13:54 04/16/19 13:54 Laboratory Tests 04/16/19 04/16/19 04/17/19 13:54 20:40 03:31 Troponin I < 0.03 < 0.03 < 0.03 LDL Cholesterol, Calc 04/17/19 03:31 Troponin I LDL Cholesterol, Calc 71 Impressions Echocardiogram 04/17/19 08:31 Impressions: LVEF 60%. Normal LV chamber size, wall thickness and function. Mild left ventricular diastolic dysfunction. Normal right ventricular structure and function. No evidence of a PFO with agitated saline contrast. No evidence of pulmonary hypertension. No significant valvular dysfunction. Left Ventricular Wall Motion: Rest Echo Findings All wall segments showed normal motion. Findings: Study Quality * Technically adequate exam. ECG Findings * Normal sinus rhythm. Left Ventricle * LVEF 60%. * Normal LV chamber size, wall thickness and function. * Mild left ventricular diastolic dysfunction. Right Ventricle * Normal right ventricular structure and function. Left Atrium * Normal left atrial size. Right Atrium * Normal right atrial size. Interatrial Septum * No evidence of a PFO with agitated saline contrast. Aortic Valve * Trileaflet aortic valve with normal function. * No aortic regurgitation. * No aortic stenosis. Mitral Valve * Normal mitral valve structure and function. * No mitral regurgitation. * No mitral stenosis. Tricuspid Valve * Normal tricuspid valve structure and function. * Trace tricuspid regurgitation. * No evidence of pulmonary hypertension. Pulmonic Valve * Pulmonic valve is not well visualized. * No pulmonic regurgitation. Aorta * Normally sized aortic root. Pericardium * The pericardium appears normal. IVC * Normal IVC dimensions and inspiratory collapse. Pulmonary Artery * Normal visualized portions of the main pulmonary artery. Active Medications Acetaminophen (Tylenol) 650 mg PO Q6HR PRN PRN Reason: Mild Pain/Fever Stop: 10/16/19 15:22 Hydrocodone Bitart/Acetaminophen ([place] 5-325 Mg) 1 tab PO Q6HR PRN PRN Reason: Moderate Pain Stop: 03/06/20 15:22 Amitriptyline HCl (Elavil) 25 mg PO [facility] Stop: 10/16/19 21:01 Last Admin: 04/17/19 21:11 Dose: 25 mg Documented by: Aspirin (Aspirin) 81 mg PO DAILY [facility] Stop: 10/17/19 09:01 Last Admin: 04/17/19 10:53 Dose: 81 mg Documented by: Atorvastatin Calcium (Lipitor) 40 mg PO [facility] Stop: 10/16/19 21:01 Last Admin: 04/17/19 21:11 Dose: 40 mg Documented by: Citalopram Hydrobromide (Celexa) 20 mg PO DAILY [facility] Stop: 10/17/19 09:01 Last Admin: 04/17/19 10:53 Dose: 20 mg Documented by: Clopidogrel Bisulfate (Plavix) 75 mg PO DAILY [facility] Stop: 10/18/19 09:01 Dextrose/Water (Dextrose 50% (Syg)) 25 ml IVP AD PRN PRN Reason: Hypoglycemia Stop: 10/16/19 15:26 Docusate Sodium (Colace) 100 mg PO BID PRN PRN Reason: Constipation Stop: 10/16/19 21:01 Gabapentin (Neurontin) 600 mg PO [facility] Stop: 10/16/19 21:01 Last Admin: 04/17/19 21:11 Dose: 600 mg Documented by: Glucagon (Glucagen) 1 mg IM ONCE PRN PRN Reason: Hypoglycemia Stop: 10/16/19 15:26 Glucose (Gluctose) 15 gm PO ONCE PRN PRN Reason: Hypoglycemia Stop: 10/16/19 15:26 Glucose (Gluctose) 30 gm PO ONCE PRN PRN Reason: Hypoglycemia Stop: 10/16/19 15:26 Dextrose (Dextrose 5%) 1,000 mls @ 100 mls/hr IVC .Q10H PRN PRN Reason: HYPOGLYCEMIA Stop: 10/16/19 15:26 Insulin Human Lispro (Humalog) 0 units SQ [facility]; Protocol Stop: 10/16/19 21:01 Last Admin: 04/17/19 21:11 Dose: Not Given Documented by: Insulin Human Lispro ([facility]alog) [facility]; Protocol Stop: 10/16/19 16:31 Last Admin: 04/18/19 08:27 Dose: Not Given Documented by: Levothyroxine Sodium (Synthroid) 100 mcg PO 30 [facility] Stop: 10/17/19 06:31 Last Admin: 04/18/19 06:11 Dose: 100 mcg Documented by: Losartan Potassium (Cozaar) 50 mg PO DAILY [facility]; Protocol Stop: 10/17/19 09:01 Last Admin: 04/17/19 10:53 Dose: 50 mg Documented by: Metoprolol Succinate (Toprol Xl) 150 mg PO DAILY [facility] Stop: 10/17/19 09:01 Last Admin: 04/17/19 10:53 Dose: 150 mg Documented by: Naloxone HCl (Narcan) 0.4 mg IVP Q2MPRN PRN PRN Reason: SEE COMMENTS Stop: 10/16/19 15:22 Nitroglycerin (Nitroglycerin) 0.4 mg SL Q5MPRN PRN PRN Reason: Chest Pain Stop: 10/16/19 16:23 Omeprazole (Prilosec) 20 mg PO 729 [facility]; Protocol Stop: 10/17/19 07:31 Last Admin: 04/18/19 06:11 Dose: 20 mg Documented by: Ondansetron HCl (Zofran) 4 mg IVP Q8HR PRN PRN Reason: Nausea And Vomiting Stop: 10/16/19 15:22 Pharmacy Profile Note (Patient Taking Own Medication) 0 each PO DAILY [facility] Stop: 10/17/19 09:01 Last Admin: 04/17/19 10:53 Dose: Not Given Documented by: Pramipexole Dihydrochloride (Mirapex) 0.25 mg PO HS [facility] Stop: 10/16/19 21:01 Last Admin: 04/17/19 21:11 Dose: 0.25 mg Documented by: Topiramate (Topamax) 100 mg PO DAILY [facility] Stop: 10/17/19 09:01 Last Admin: 04/17/19 10:53 Dose: 100 mg Documented by: Zolpidem Tartrate (Ambien) 10 mg PO HS PRN; Protocol PRN Reason: Sleep Stop: 10/16/19 15:25 - Imaging and Cardiology Echo: report reviewed Cardiac cath: report reviewed Consult Discharge Plan - Plan Referrals: Mitchell Aragon MD [Primary Care Provider] - 04/23/19 2:00 pm ()
[2019-04-18] MEDS: Topiramate 100 MG TABLET PO SCH (08:34)
[2019-04-18] MEDS: Aspirin 81 MG TAB.CHEW PO SCH (08:34)
[2019-04-18] MEDS: Metoprolol XL (24 HR) Succ 50 MG TAB.ER.24H PO SCH (08:35)
[2019-04-18] MEDS: (Ezetimibe [Zetia] 10 MG) PO SCH (08:39)
--- NOTE | 2019-04-18 09:21 | Discharge Summary ---
- NOTES TO OUTPATIENT PROVIDER Notes to Outpatient Provider: f/u with cardiology within 2 weeks. f/u with PCP within a week. Date of Encounter: 04/18/19 Time of Encounter: 09:15 - Discharge Diagnosis (1) Type 2 diabetes mellitus Priority: Secondary Status: Chronic Qualifiers: Diabetes mellitus superintendent container terminal insulin use: without superintendent container terminal use Diabetes mellitus complication status: without complication Qualified Code(s): E11.9 - Type 2 diabetes mellitus without complications (2) Essential hypertension Priority: Secondary Status: Chronic (3) Chest pain Priority: Primary Status: Acute Qualifiers: Chest pain type: chest pain due to myocardial ischemia Ischemic chest pain type: unstable angina pectoris Qualified Code(s): I20.0 - Unstable angina (4) Unstable angina Priority: Primary Status: Acute (5) HLD (hyperlipidemia) Priority: Secondary Status: Acute Qualifiers: Hyperlipidemia type: unspecified Qualified Code(s): E78.5 - Hyperlipidemia, unspecified (6) CAD (coronary artery disease) Priority: Primary Status: Acute Qualifiers: Coronary Disease-Associated Artery/Lesion type: [place] artery [place] vs. transplanted heart: [place] heart Associated angina: without angina Qualified Code(s): I25.10 - Atherosclerotic heart disease of [place] coronary artery without angina pectoris Hospital course: Ms. Salas is a 54 year old female with a known past medical history of hypertension, hyperlipidemia, diabetes and anxiety patient has been having intermittent chest pain for a month who had stress test done on 03/09/19 which showed no ischemia or infarct on perfusion study, however pt still has been having intermittent CP. Pt stated initially she developed CP over Rt chest wall , now radiated to Left chest wall and sub sternal region. She also stated her CP 7/10 in severity, and radiating to left shoulder and arm. Her initial troponin was negative in the ER. EKG showed normal sinus rhythm with nonspecific ST, T changes. She was admitted in the hospital and placed on warp knitter helper. She was on heparin drip. Her serial troponin came back as negative. Patient underwent left heart catheterization on 04/17 which revealed severe 1 vessel disease, a drug-eluting stent was placed on the mid LAD, patient was placed on aspirin as well as Plavix. Her chest pain has significantly improved. Cardiology recommended continue current medications and follow up as outpatient. Patient is discharged home today, she will also follow-up with PCP as scheduled. Discharge discussed with: patient Time spent discussing smoking cessation with patient: more than 10 minutes - Time Spent with Patient Total time spent providing and/or coordinating discharge services: Time spent: Greater than 30 minutes - Discharge Medications Prescriptions: New Clopidogrel [Plavix] 75 mg PO DAILY #30 tablet Metoprolol XL (24 HR) Succ [Toprol Xl] 150 mg PO DAILY #90 tab.er.24h Continued Aspirin 81 mg PO DAILY Zolpidem [Ambien] 10 mg PO HS PRN PRN Reason: Sleep Omeprazole [PriLOSEC] 20 mg PO DAILY Gabapentin [Neurontin] 600 mg PO HS Citalopram [CeleXA] 20 mg PO DAILY Amitriptyline [Elavil] 25 mg PO HS Atorvastatin [Lipitor] 40 mg PO QPM Cholecalciferol (Vitamin D3) [Dialyvite Vitamin D] 10,000 units PO DAILY Glimepiride [Amaryl] 2 mg PO DAILY Levothyroxine [Synthroid] 125 mcg PO QAM Metformin HCl 1,000 mg PO BID Metoprolol Succinate [Toprol Xl] 150 mg PO DAILY Multivitamin [Daily Multiple Vitamin] 1 tab PO DAILY Nystatin POWDER [Nystop] 1 appl TP BID PRN PRN Reason: Rash Oxybutynin Chloride [Oxybutynin Chloride ER] 10 mg PO DAILY Pramipexole [Mirapex] 0.25 mg PO HS Topiramate 50 mg PO BID Discontinued Meloxicam 15 mg PO DAILY PRN PRN Reason: Pain Rizatriptan Benzoate [Maxalt Crossbow Maker] 10 mg PO PRN PRN PRN Reason: Migraine Headache Home Medications: Aspirin 81 mg PO DAILY 04/25/15 [History] Omeprazole [PriLOSEC] 20 mg PO DAILY 04/25/15 [History] Zolpidem [Ambien] 10 mg PO HS PRN 04/25/15 [History] Gabapentin [Neurontin] 600 mg PO HS 02/18/17 [History] Amitriptyline [Elavil] 25 mg PO HS 04/16/19 [History] Atorvastatin [Lipitor] 40 mg PO QPM 04/16/19 [History] Cholecalciferol (Vitamin D3) [Dialyvite Vitamin D] 10,000 units PO DAILY 04/16/19 [History] Citalopram [CeleXA] 20 mg PO DAILY 04/16/19 [History] Glimepiride [Amaryl] 2 mg PO DAILY 04/16/19 [History] Levothyroxine [Synthroid] 125 mcg PO QAM 04/16/19 [History] Metformin HCl 1,000 mg PO BID 04/16/19 [History] Metoprolol Succinate [Toprol Xl] 150 mg PO DAILY 04/16/19 [History] Multivitamin [Daily Multiple Vitamin] 1 tab PO DAILY 04/16/19 [History] Nystatin POWDER [Nystop] 1 appl TP BID PRN 04/16/19 [History] Oxybutynin Chloride [Oxybutynin Chloride ER] 10 mg PO DAILY 04/16/19 [History] Pramipexole [Mirapex] 0.25 mg PO HS 04/16/19 [History] Topiramate 50 mg PO BID 04/16/19 [History] Clopidogrel [Plavix] 75 mg PO DAILY #30 tablet 04/18/19 [Rx] Metoprolol XL (24 HR) Succ [Toprol Xl] 150 mg PO DAILY #90 tab.er.24h 04/18/19 [Rx] Allergies/Adverse Reactions: Allergy/AdvReac Type Severity Reaction Status Date / Time carbidopa [From Sinemet] AdvReac Mild eleavates Verified 02/06/17 15:00 liver or kindey studies levodopa [From Sinemet] AdvReac Mild eleavates Verified 02/06/17 15:00 liver or kindey studies simvastatin AdvReac Mild eleavates Verified 02/06/17 15:00 liver and kindey studies Date of admission: 04/16/19 15:32 Primary care physician: Mitchell Aragon MD Consults: 04/16/19 15:24 Consult to Cardiology [CONS] Routine Comment: Consulting Provider: Cardiology Shira Reason for Consult: chest pain Time Notified: 15:24 Call Completed: Yes Anticipated date of discharge: 04/18/19 - Constitutional Vitals: Temp Pulse Resp BP Pulse Ox 97.6 F 64 14 162/80 97 04/18/19 03:47 04/18/19 03:47 04/18/19 03:47 04/18/19 03:47 04/18/19 03:47 General appearance: Present: cooperative, A&O X 3, no acute distress, answers questions appropriately Exam: PHYSICAL EXAMINATION: GENERAL APPEARANCE: The patient is alert, oriented and in no acute distress. HEENT: Head is normocephalic. The sinuses are nontender. Pupils are equal and reactive. The nares are patent. Oropharynx clear without lesions. NECK: Supple without lymphadenopathy. HEART: Regular rate and rhythm. LUNGS: No crackles or wheezes are heard. ABDOMEN: Soft, nontender, nondistended with good bowel sounds heard. Inguinal area is normal. EXTREMITIES: Without cyanosis, clubbing or edema. NEUROLOGICAL: Gross nonfocal. SKIN: Warm and dry without any rash. - Patient Status Disposition: Home, Self-Care Condition: Good Functional capacity at discharge: independent ambulation Overall status at discharge: patient is progressing back to baseline - Discharge Instructions Follow Up With: Mitchell Aragon MD [Primary Care Provider] - 04/23/19 2:00 pm () - Diet and Activity Activity: increase activity as tolerated Diet: diabetic diet, low fat, low cholesterol, low salt diet
[2019-04-18 09:23] VITALS: BP 166/96
== END 2019-04-18 11:30 | disposition home or self-care (01) ==
LOC: EMEROOARM 13:39 → 3BNU 13:39 → SUATTDRO 15:32 → 3BNU 15:49
PROVIDERS: ADMIT Internal Medicine; ATTEND Family Medicine

== ENCOUNTER 2019-08-10 16:45 | Observation (INO) ==
[2019-08-10 17:50] LABS: Basophils # 0.1 K/mcL (0.0-0.2); Basophils % 0.3 %; Eosinophils % 0.1 %; Hematocrit 44.6 % (35.3-44.9); Hemoglobin 14.6 g/dL (11.5-15.4); Immature Granulocytes % 0.5 % (0-4); Lymphocytes % 25.5 %; Mean Corpuscular HGB Conc 32.7 g/dL (31.6-35.5); Mean Corpuscular Volume 82.4 fL (83.0-100.0); Mean Platelet Volume 9.4 fL (9.4-12.4); Monocytes # 2.5 K/mcL (0.0-1.3); Monocytes % 10.4 %; Platelet Count 359 K/mcL (140-400); Red Blood Count 5.41 M/mcL (3.82-4.97); Red Cell Distribution Width 13.8 % (11.5-14.5); Segmented Neutrophils % 63.2 %; White Blood Count 23.6 K/mcL (4.3-11.1)
[2019-08-10 18:17] LABS: BUN/Creatinine Ratio 16 (6-26); Blood Urea Nitrogen 12 mg/dL (6-20); Calcium 9.3 mg/dL (8.6-10.3); Carbon Dioxide 30 mEq/L (23-29); Chloride 104 mEq/L (98-107); Glucose 49 mg/dL (70-105); Osmolality,Calculated 291 (280-300); Potassium 3.2 mEq/L (3.5-5.1); Sodium 142 mEq/L (136-145); eGFR For African Americans > 60 (> 60); eGFR For Non-African Americans > 60 (> 60)
[2019-08-10 18:18] LABS: Troponin I < 0.03 ng/mL (< 0.04)
[2019-08-10] MEDS ORDERED: Isovue-370 500 ML BOTTLE IVP ONE (18:24)
[2019-08-10] MEDS ORDERED: Ondansetron 4 MG/2 ML VIAL IVP ONE (19:51)
[2019-08-10] MEDS ORDERED: Morphine Sulfate 2 MG/ML SYRINGE IVP ONE (19:51)
[2019-08-10] MEDS ORDERED: cefTRIAXone 1,000 MG in 0.9 % Sodium Chloride Mini Bag 100 ML IVPB ONE (20:56)
[2019-08-10] MEDS ORDERED: Azithromycin 500 MG in 0.9 % Sodium Chloride 250 ML IVPB ONE (20:56)
[2019-08-10] MEDS ORDERED: cefTRIAXone 1,000 MG in Water for inj. (sterile) 10 ML IVP ONE (21:30)
[2019-08-10] MEDS ORDERED: Nitroglycerin 0.4 MG TAB.SUBL SL PRN (22:53)
[2019-08-11] MEDS ORDERED: Naloxone 0.4 MG/ML INJ IVP PRN (03:54)
[2019-08-11] MEDS ORDERED: Ondansetron 4 MG/2 ML VIAL IVP PRN (03:54)
[2019-08-11] MEDS ORDERED: *HR* Dextrose 50 % in Water (Syg) 50 ML SYRINGE IVP PRN (03:55)
[2019-08-11] MEDS ORDERED: D5% in Water 1,000 ML IVC PRN (03:55)
[2019-08-11] MEDS ORDERED: Dextrose Gel 15 GM/37.5 ML TUBE PO PRN ×2 (03:55)
[2019-08-11] MEDS ORDERED: 0.9 % Sodium Chloride 1,000 ML IVC SCH (04:00)
[2019-08-11] MEDS ORDERED: Albuterol 2.5 MG/3 ML NEBULIZER IH PRN (06:35)
[2019-08-11] MEDS ORDERED: Potassium Chloride 40 MEQ, Lidocaine 1% 2 ML in 0.9 % Sodium Chloride 500 ML IVPB ONE (06:38)
[2019-08-11] MEDS: Insulin LISPRO 300 UNITS/3 ML VIAL SQ SCH ×3 (08:26→17:56)
[2019-08-11] MEDS ORDERED: cefTRIAXone 1,000 MG in Water for inj. (sterile) 10 ML IVP SCH (09:00)
[2019-08-11] MEDS: Ipratropium/Albuterol Neb 3 ML IH SCH ×3 (10:32→22:37)
[2019-08-11 10:38] LABS: Hematocrit 42.4 % (35.3-44.9); Hemoglobin 13.8 g/dL (11.5-15.4); Mean Corpuscular HGB Conc 32.5 g/dL (31.6-35.5); Mean Corpuscular Hemoglobin 26.6 pg (28.0-33.3); Mean Corpuscular Volume 81.9 fL (83.0-100.0); Mean Platelet Volume 9.7 fL (9.4-12.4); Platelet Count 278 K/mcL (140-400); Red Blood Count 5.18 M/mcL (3.82-4.97); Red Cell Distribution Width 13.7 % (11.5-14.5); White Blood Count 13.2 K/mcL (4.3-11.1)
[2019-08-11 10:56] LABS: Albumin 3.6 g/dL (3.5-5.7); Albumin/Globulin Ratio 1.2 (1.1-2.2); Bilirubin,Direct 0.1 mg/dL (0.0-0.2); Bilirubin,Indirect 0.3 mg/dL (0.0-1.0); Bilirubin,Total 0.4 mg/dL (0.3-1.0); Globulin 2.9 g/dL (2.4-3.5); Total Protein 6.5 g/dL (6.4-8.9)
[2019-08-11 10:58] LABS: BUN/Creatinine Ratio 15 (6-26); Blood Urea Nitrogen 11 mg/dL (6-20); Calcium 8.5 mg/dL (8.6-10.3); Carbon Dioxide 28 mEq/L (23-29); Chloride 106 mEq/L (98-107); Glucose 65 mg/dL (70-105); Osmolality,Calculated 290 (280-300); Sodium 141 mEq/L (136-145); eGFR For African Americans > 60 (> 60); eGFR For Non-African Americans > 60 (> 60)
[2019-08-11 10:59] LABS: Troponin I < 0.03 ng/mL (< 0.04)
[2019-08-11] MEDS: D5% in 0.45% NACL w KCl 20 MEQ/1,000 ML MLS IVC SCH (12:53)
[2019-08-11 14:33] LABS: Estimated Average Glucose 134 mg/dl
[2019-08-11] MEDS ORDERED: Nystatin POWDER 30 GM BOTTLE TP PRN (15:24)
[2019-08-11] MEDS: *HR* Heparin 5,000 UNIT/ML VIAL SQ SCH (17:56)
[2019-08-11] MEDS ORDERED: Azithromycin 500 MG in D5% in Water 250 ML IVPB SCH (21:00)
[2019-08-11] MEDS ORDERED: Gabapentin 300 MG CAPSULE PO SCH (21:00)
[2019-08-11] MEDS: Budesonide/Formoterol 160/4.5 1 PUFF INH IH SCH (22:37)
[2019-08-12] MEDS: D5% in 0.45% NACL w KCl 20 MEQ/1,000 ML MLS IVC SCH ×2 (01:10→11:15)
[2019-08-12] MEDS: Insulin LISPRO 300 UNITS/3 ML VIAL SQ SCH ×3 (02:28→13:00)
[2019-08-12] MEDS: Ipratropium/Albuterol Neb 3 ML IH SCH ×3 (03:46→16:11)
[2019-08-12] MEDS: *HR* Heparin 5,000 UNIT/ML VIAL SQ SCH (06:06)
[2019-08-12 08:23] LABS: Hemoglobin 14.5 g/dL (11.5-15.4); Mean Corpuscular HGB Conc 32.2 g/dL (31.6-35.5); Mean Corpuscular Hemoglobin 26.8 pg (28.0-33.3); Mean Platelet Volume 10.2 fL (9.4-12.4); Platelet Count 226 K/mcL (140-400); Red Blood Count 5.42 M/mcL (3.82-4.97); Red Cell Distribution Width 13.8 % (11.5-14.5); White Blood Count 13.1 K/mcL (4.3-11.1)
[2019-08-12 08:41] LABS: BUN/Creatinine Ratio 14 (6-26); Blood Urea Nitrogen 10 mg/dL (6-20); Calcium 8.7 mg/dL (8.6-10.3); Carbon Dioxide 27 mEq/L (23-29); Chloride 104 mEq/L (98-107); Glucose 143 mg/dL (70-105); Osmolality,Calculated 294 (280-300); Potassium 4.9 mEq/L (3.5-5.1); Sodium 141 mEq/L (136-145); eGFR For African Americans > 60 (> 60); eGFR For Non-African Americans > 60 (> 60)
[2019-08-12] MEDS ORDERED: Cholecalciferol (D-3) 1,000 UNIT (25MCG) TABLET PO SCH (09:00)
[2019-08-12] MEDS ORDERED: Aspirin 81 MG TAB.CHEW PO SCH (09:00)
[2019-08-12] MEDS ORDERED: Metoprolol XL (24 HR) Succ 50 MG TAB.ER.24H PO SCH (09:00)
[2019-08-12] MEDS ORDERED: Isosorbide MONOnitrate (24 HR) 30 MG TAB.ER.24H PO SCH (09:00)
[2019-08-12 10:07] VITALS: BP 165/92
[2019-08-12] MEDS: Budesonide/Formoterol 160/4.5 1 PUFF INH IH SCH (10:36)
== END 2019-08-12 16:27 | disposition home or self-care (01) ==
LOC: EMEROOARM 16:45 → CDU 16:45 → SUATTDRO 08-11 01:55 → CDU 08-11 01:57 → 3ANU 08-11 15:08
PROVIDERS: ADMIT Internal Medicine; ATTEND Student in an Organized Health Care Education/Training Program

== ENCOUNTER 2019-11-17 18:55 | Observation (INO) ==
[2019-11-17 19:30] LABS: Basophils % 0.2 %; Eosinophils # 0.2 K/mcL (0.0-0.6); Hematocrit 40.9 % (35.3-44.9); Hemoglobin 13.1 g/dL (11.5-15.4); Immature Granulocytes % 0.2 % (0-4); Lymphocytes # 3.6 K/mcL (0.6-4.6); Lymphocytes % 33.7 %; Mean Corpuscular Hemoglobin 26.6 pg (28.0-33.3); Mean Corpuscular Volume 83.1 fL (83.0-100.0); Mean Platelet Volume 9.4 fL (9.4-12.4); Monocytes # 0.9 K/mcL (0.0-1.3); Monocytes % 8.6 %; Neutrophils # 5.8 K/mcL (1.6-8.9); Platelet Count 321 K/mcL (140-400); Red Blood Count 4.92 M/mcL (3.82-4.97); Red Cell Distribution Width 14.3 % (11.5-14.5); Segmented Neutrophils % 55.3 %; White Blood Count 10.5 K/mcL (4.3-11.1)
[2019-11-17] MEDS ORDERED: Aspirin 81 MG TAB.CHEW PO ONE (19:53)
[2019-11-17 19:54] LABS: BUN/Creatinine Ratio 11 (6-26); Blood Urea Nitrogen 8 mg/dL (6-20); Carbon Dioxide 22 mEq/L (23-29); Chloride 107 mEq/L (98-107); Glucose 97 mg/dL (70-105); Osmolality,Calculated 286 (280-300); Potassium 3.8 mEq/L (3.5-5.1); Sodium 139 mEq/L (136-145); Troponin I < 0.03 ng/mL (< 0.04); eGFR For African Americans > 60 (> 60); eGFR For Non-African Americans > 60 (> 60)
[2019-11-17] MEDS: Nitroglycerin 0.4 MG TAB.SUBL SL SCH ×2 (20:05→20:17)
[2019-11-17] MEDS ORDERED: Naloxone 0.4 MG/ML INJ IVP PRN (22:30)
[2019-11-17] MEDS ORDERED: Nystatin POWDER 30 GM BOTTLE TP PRN (23:24)
[2019-11-17] MEDS ORDERED: *HR* Dextrose 50 % in Water (Syg) 50 ML SYRINGE IVP PRN (23:38)
[2019-11-17] MEDS ORDERED: Dextrose Gel 15 GM/37.5 ML TUBE PO PRN ×2 (23:38)
[2019-11-17] MEDS ORDERED: Nitroglycerin 0.4 MG TAB.SUBL SL PRN (23:38)
[2019-11-17] MEDS ORDERED: D5% in Water 1,000 ML IVC PRN (23:38)
[2019-11-18] MEDS: Insulin LISPRO 300 UNITS/3 ML VIAL SQ SCH ×2 (00:08→05:21)
[2019-11-18 02:20] LABS: Hemoglobin 12.7 g/dL (11.5-15.4); Mean Corpuscular HGB Conc 31.8 g/dL (31.6-35.5); Mean Corpuscular Hemoglobin 26.1 pg (28.0-33.3); Mean Corpuscular Volume 82.1 fL (83.0-100.0); Mean Platelet Volume 9.6 fL (9.4-12.4); Platelet Count 293 K/mcL (140-400); Red Blood Count 4.87 M/mcL (3.82-4.97); Red Cell Distribution Width 14.4 % (11.5-14.5); White Blood Count 10.6 K/mcL (4.3-11.1)
[2019-11-18 02:39] LABS: BUN/Creatinine Ratio 13 (6-26); Blood Urea Nitrogen 10 mg/dL (6-20); Calcium 8.8 mg/dL (8.6-10.3); Carbon Dioxide 23 mEq/L (23-29); Chloride 108 mEq/L (98-107); Glucose 121 mg/dL (70-105); Osmolality,Calculated 288 (280-300); Potassium 3.7 mEq/L (3.5-5.1); Sodium 139 mEq/L (136-145); eGFR For African Americans > 60 (> 60); eGFR For Non-African Americans > 60 (> 60)
[2019-11-18] MEDS ORDERED: Topiramate 25 MG TABLET PO SCH (09:00)
[2019-11-18] MEDS ORDERED: Isosorbide MONOnitrate (24 HR) 60 MG TAB.ER.24H PO SCH (09:00)
[2019-11-18] MEDS ORDERED: Aspirin 81 MG TAB.CHEW PO SCH (09:00)
[2019-11-18] MEDS ORDERED: Metoprolol XL (24 HR) Succ 50 MG TAB.ER.24H PO SCH (09:00)
[2019-11-18] MEDS ORDERED: Isosorbide MONOnitrate (24 HR) 30 MG TAB.ER.24H PO SCH (09:00)
[2019-11-18] MEDS ORDERED: Budesonide/Formoterol 160/4.5 1 PUFF INH IH SCH (10:00)
[2019-11-18 10:53] VITALS: BP 118/77
[2019-11-18] MEDS ORDERED: Gabapentin 300 MG CAPSULE PO SCH (21:00)
== END 2019-11-18 11:29 | disposition home or self-care (01) ==
LOC: 3BNU 18:55 → EMEROOARM 18:55 → SUATTDRO 21:18 → 3BNU 21:52
PROVIDERS: ADMIT Student in an Organized Health Care Education/Training Program; ATTEND Internal Medicine

== ENCOUNTER 2021-05-25 15:39 | Inpatient (IN) ==
[2021-05-25 16:36] LABS: Basophils # 0.1 K/mcL (0.0-0.2); Basophils % 0.3 %; Eosinophils # 0.5 K/mcL (0.0-0.6); Eosinophils % 2.6 %; Hematocrit 39.8 % (35.3-44.9); Hemoglobin 13.1 g/dL (11.5-15.4); Immature Granulocytes % 0.4 % (0-4); Lymphocytes % 24.8 %; Mean Corpuscular HGB Conc 32.9 g/dL (31.6-35.5); Mean Corpuscular Volume 81.9 fL (83.0-100.0); Mean Platelet Volume 10.3 fL (9.4-12.4); Monocytes # 1.4 K/mcL (0.0-1.3); Platelet Count 493 K/mcL (140-400); Red Blood Count 4.86 M/mcL (3.82-4.97); Red Cell Distribution Width 13.5 % (11.5-14.5); Segmented Neutrophils % 64.9 %; White Blood Count 20.1 K/mcL (4.3-11.1)
[2021-05-25 16:51] LABS: Activated Partial Thrombo Time 25.8 Seconds (26.0-36.0)
[2021-05-25 17:12] LABS: BUN/Creatinine Ratio 21 (6-26); Blood Urea Nitrogen 24 mg/dL (6-20); Calcium 10.4 mg/dL (8.6-10.3); Carbon Dioxide 34 mEq/L (23-29); Chloride 88 mEq/L (98-107); Glucose 235 mg/dL (70-105); Osmolality,Calculated 292 (280-300); Potassium 2.6 mEq/L (3.5-5.1); Sodium 135 mEq/L (136-145); Troponin I < 0.03 ng/mL (< 0.04); eGFR For African Americans 60 (> 60); eGFR For Non-African Americans 49 (> 60)
[2021-05-25] MEDS: 0.9 % Sodium Chloride 1,000 ML IVC SCH (17:16)
[2021-05-25 17:54] LABS: Bilirubin,Urine Negative (Negative); Blood,Urine Negative (Negative); Clarity,Urine Clear (Clear); Color,Urine Light-Yellow (Yellow); Glucose,Urine (UA) Normal (Normal); Ketones,Urine Negative (Negative); Leukocyte Esterase,Urine Negative (Negative); Nitrite,Urine Negative (Negative); Protein,Urine Negative (Neg-Trace); Specific Gravity,Urine 1.014 (1.010-1.025); Urobilinogen,Urine Normal (Normal)
[2021-05-25] MEDS ORDERED: Potassium Chloride Elixir 20 MEQ/15 ML UDC PO ONE (18:10)
[2021-05-25] MEDS ORDERED: Potassium Chloride 40 MEQ, Lidocaine 1% 2 ML in 0.9 % Sodium Chloride 500 ML IVPB ONE (18:10)
[2021-05-25] MEDS ORDERED: Isovue-370 500 ML BOTTLE IVP ONE (18:10)
[2021-05-25 18:44] LABS: Magnesium 2.3 mg/dL (1.6-2.6)
[2021-05-25] MEDS ORDERED: *HR* Heparin 5,000 UNIT/ML VIAL IVP ONE (19:26)
[2021-05-25] MEDS ORDERED: *HR* Heparin 5,000 UNIT/ML VIAL IVP PRN ×2 (19:26)
[2021-05-25] MEDS ORDERED: Heparin 25,000UNIT/250ML 1/2NS 25,000 UNIT/250 ML IV.SOLN IVC SCH (19:30)
[2021-05-25 20:07] LABS: Hematocrit 35.6 % (35.3-44.9); Mean Corpuscular HGB Conc 32.3 g/dL (31.6-35.5); Mean Corpuscular Hemoglobin 26.7 pg (28.0-33.3); Mean Corpuscular Volume 82.8 fL (83.0-100.0); Mean Platelet Volume 9.9 fL (9.4-12.4); Platelet Count 423 K/mcL (140-400); Red Cell Distribution Width 13.7 % (11.5-14.5); White Blood Count 18.4 K/mcL (4.3-11.1)
[2021-05-25] MEDS ORDERED: Acetaminophen 325 MG TABLET PO PRN (20:10)
[2021-05-25] MEDS ORDERED: Naloxone 0.4 MG/ML INJ IVP PRN (20:10)
[2021-05-25] MEDS ORDERED: Ondansetron 4 MG/2 ML VIAL IVP PRN (20:10)
[2021-05-25 20:11] LABS: Hemoglobin 11.5 g/dL (11.5-15.4)
[2021-05-25] MEDS ORDERED: D5% in Water 1,000 ML IVC PRN (20:14)
[2021-05-25] MEDS ORDERED: Dextrose Gel 15 GM/37.5 ML TUBE PO PRN ×2 (20:14)
[2021-05-25] MEDS ORDERED: *HR* Dextrose 50 % in Water (Syg) 50 ML SYRINGE IVP PRN (20:14)
[2021-05-25] MEDS ORDERED: Perflutren Lipid Microsphere 1.3 ML in 0.9 % Sodium Chloride 8.7 ML IVP PRN (20:15)
[2021-05-25 20:17] LABS: Heparin anti-factor XA UFH < 0.04 IU/mL (0.30-0.70)
[2021-05-25 20:18] LABS: INR 1.1; Prothrombin Time 12.2 Seconds (9.4-12.1)
[2021-05-25 23:26] LABS: Adenovirus Not Detected (Not Detect); Coronavirus 229E Not Detected (Not Detect); Coronavirus HKU1 Not Detected (Not Detect); Coronavirus NL63 Not Detected (Not Detect); Coronavirus OC43 Not Detected (Not Detect); Human Metapneumovirus Not Detected (Not Detect); SARS-CoV-2 Not Detected (Not Detect)
[2021-05-25 23:27] LABS: Bordetella Pertussis Not Detected (Not Detect); Chlamydophila pneumoniae Not Detected (Not Detect); Human Rhinovirus/Enterovirus Not Detected (Not Detect); Influenza A Subtype 2009 H1 Not Detected (Not Detect); Influenza B Not Detected (Not Detect); Mycoplasma pneumoniae Not Detected (Not Detect); Parainfluenza Virus 1 Not Detected (Not Detect); Parainfluenza Virus 2 Not Detected (Not Detect); Parainfluenza Virus 3 Not Detected (Not Detect); Parainfluenza Virus 4 Not Detected (Not Detect); Respiratory Syncytial Virus Not Detected (Not Detect)
[2021-05-26] MEDS: Insulin LISPRO 300 UNITS/3 ML VIAL SUBQ SCH ×5 (01:04→20:47)
[2021-05-26 05:29] LABS: Hematocrit 33.7 % (35.3-44.9); Mean Corpuscular HGB Conc 32.6 g/dL (31.6-35.5); Mean Corpuscular Hemoglobin 27.4 pg (28.0-33.3); Mean Platelet Volume 10.2 fL (9.4-12.4); Platelet Count 389 K/mcL (140-400); Red Blood Count 4.01 M/mcL (3.82-4.97); Red Cell Distribution Width 13.4 % (11.5-14.5)
[2021-05-26 05:48] LABS: BUN/Creatinine Ratio 19 (6-26); Blood Urea Nitrogen 20 mg/dL (6-20); Calcium 9.2 mg/dL (8.6-10.3); Carbon Dioxide 34 mEq/L (23-29); Chloride 94 mEq/L (98-107); Chol/HDL Ratio 3.3 (0-4.9); Cholesterol 99 mg/dL (< 200); Glucose 185 mg/dL (70-105); HDL Cholesterol 30 mg/dL (40-59); LDL Cholesterol,Calculated 31 mg/dL (< 100); Magnesium 2.1 mg/dL (1.6-2.6); Osmolality,Calculated 291 (280-300); Sodium 137 mEq/L (136-145); Triglycerides 189 mg/dL (< 150); eGFR For African Americans > 60 (> 60); eGFR For Non-African Americans 54 (> 60)
[2021-05-26 06:00] LABS: Thyroid Stimulating Hormone 3.998 mcIU/mL (0.340-5.600)
[2021-05-26] MEDS ORDERED: Piperacillin/Tazobactam 4.5 GM in 0.9 % Sodium Chloride Mini Bag 100 ML IVPB ONE (06:32)
[2021-05-26] MEDS: Piperacillin/Tazobactam 3.375 GM in 0.9 % Sodium Chloride Mini Bag 100 ML IVPB SCH ×3 (07:07→22:11)
[2021-05-26] MEDS: 0.9 % Sodium Chloride 1,000 ML IVC SCH (08:05)
[2021-05-26 08:11] LABS: Eosinophils # 0.4 K/mcL (0.0-0.6); Monocytes # 1.5 K/mcL (0.0-1.3); Neutrophils # 9.1 K/mcL (1.6-8.9)
[2021-05-26 08:12] LABS: Platelet Estimate Normal (Normal)
[2021-05-26 08:53] LABS: Estimated Average Glucose 151 mg/dl; Hemoglobin A1C 6.9 %
[2021-05-26] MEDS ORDERED: Nitroglycerin 0.4 MG TAB.SUBL SL PRN (17:35)
[2021-05-26] MEDS ORDERED: *HR* OxyCODONE/APAP 5/325 TABLET PO PRN (17:35)
[2021-05-26] MEDS ORDERED: Ondansetron ODT 4 MG TAB.RAPDIS SL PRN (17:35)
[2021-05-26] MEDS: Topiramate 25 MG TABLET PO SCH (20:39)
[2021-05-26] MEDS: Metoprolol 100 MG TABLET PO SCH (20:39)
[2021-05-26] MEDS: Ranolazine 500 MG TAB.ER.12H PO SCH (20:39)
[2021-05-26] MEDS: Apixaban 5 MG TABLET PO SCH (20:40)
[2021-05-26] MEDS: DEXTROAMPHETAMINE PO SCH (20:40)
[2021-05-26] MEDS: AMPHETAMINE PO SCH (20:40)
[2021-05-26] MEDS ORDERED: Apixaban 5 MG TABLET PO SCH (21:00)
[2021-05-26] MEDS ORDERED: Gabapentin 300 MG CAPSULE PO SCH (21:00)
[2021-05-26] MEDS: Budesonide/Formoterol 160/4.5 1 PUFF INH IH SCH (22:15)
[2021-05-27 01:07] LABS: Basophils # 0.1 K/mcL (0.0-0.2); Basophils % 0.4 %; Eosinophils # 0.5 K/mcL (0.0-0.6); Eosinophils % 3.8 %; Hematocrit 34.1 % (35.3-44.9); Immature Granulocytes % 0.4 % (0-4); Lymphocytes # 3.2 K/mcL (0.6-4.6); Lymphocytes % 23.9 %; Mean Corpuscular HGB Conc 32.3 g/dL (31.6-35.5); Mean Corpuscular Hemoglobin 26.9 pg (28.0-33.3); Mean Corpuscular Volume 83.4 fL (83.0-100.0); Mean Platelet Volume 9.9 fL (9.4-12.4); Monocytes # 1.3 K/mcL (0.0-1.3); Monocytes % 9.3 %; Neutrophils # 8.5 K/mcL (1.6-8.9); Platelet Count 403 K/mcL (140-400); Red Blood Count 4.09 M/mcL (3.82-4.97); Red Cell Distribution Width 13.4 % (11.5-14.5); Segmented Neutrophils % 62.2 %; White Blood Count 13.6 K/mcL (4.3-11.1)
[2021-05-27 01:26] LABS: BUN/Creatinine Ratio 15 (6-26); Blood Urea Nitrogen 15 mg/dL (6-20); Calcium 9.2 mg/dL (8.6-10.3); Carbon Dioxide 28 mEq/L (23-29); Chloride 100 mEq/L (98-107); Glucose 159 mg/dL (70-105); Osmolality,Calculated 288 (280-300); Potassium 3.3 mEq/L (3.5-5.1); Sodium 137 mEq/L (136-145); eGFR For African Americans > 60 (> 60); eGFR For Non-African Americans 59 (> 60)
[2021-05-27 02:02] LABS: Adenovirus F 40/41 PCR Not detected (Not detect); Astrovirus PCR Not detected (Not detect); C.difficile Toxin A/B Gene PCR Not detected (Not detect); Campylobacter by PCR Not detected (Not detect); Cryptosporidium by PCR Not detected (Not detect); Cyclospora cayetanensis PCR Not detected (Not detect); E. coli O157 by PCR Not detected (Not detect); Entamoeba histolytica PCR Not detected (Not detect); Enteroaggregative E.coli(EAEC) Not detected (Not detect); Enteropathogenic E.coli(EPEC) Not detected (Not detect); Enterotoxigenic E.coli (ETEC) Not detected (Not detect); Giardia lamblia PCR Not detected (Not detect); Norovirus GI/GII PCR Not detected (Not detect); Plesiomonas shigelloides PCR Not detected (Not detect); Rotavirus A PCR Not detected (Not detect); Salmonella PCR Not detected (Not detect); Sapovirus PCR Not detected (Not detect); Shig/EnteroinvasiveE coli EIEC Not detected (Not detect); Shigalike tox-prod E coli STEC Not detected (Not detect); Vibrio PCR Not detected (Not detect); Vibrio cholerae PCR Not detected (Not detect); Yersinia enterocolitica PCR Not detected (Not detect)
[2021-05-27] MEDS: Piperacillin/Tazobactam 3.375 GM in 0.9 % Sodium Chloride Mini Bag 100 ML IVPB SCH (05:42)
[2021-05-27] MEDS: Budesonide/Formoterol 160/4.5 1 PUFF INH IH SCH (08:08)
[2021-05-27] MEDS ORDERED: hydroCHLOROthiazide 25 MG TABLET PO SCH (09:00)
[2021-05-27] MEDS ORDERED: Furosemide 20 MG TABLET PO SCH (09:00)
[2021-05-27] MEDS ORDERED: Aspirin 81 MG TAB.CHEW PO SCH (09:00)
[2021-05-27] MEDS ORDERED: modafiniL 100 MG TABLET PO SCH (09:00)
[2021-05-27] MEDS ORDERED: Isosorbide MONOnitrate (24 HR) 60 MG TAB.ER.24H PO SCH (09:00)
[2021-05-27] MEDS ORDERED: amLODIPine 5 MG TABLET PO SCH (09:00)
[2021-05-27] MEDS: Insulin LISPRO 300 UNITS/3 ML VIAL SUBQ SCH ×3 (10:10→11:27)
[2021-05-27] MEDS: Ranolazine 500 MG TAB.ER.12H PO SCH (10:34)
[2021-05-27] MEDS: Metoprolol 100 MG TABLET PO SCH (10:34)
[2021-05-27] MEDS: Apixaban 5 MG TABLET PO SCH (10:34)
[2021-05-27] MEDS: Topiramate 25 MG TABLET PO SCH (10:35)
[2021-05-27] MEDS: DEXTROAMPHETAMINE PO SCH (10:36)
[2021-05-27] MEDS: AMPHETAMINE PO SCH (10:36)
[2021-05-27 11:47] VITALS: BP 98/69; PULSE 96; TEMP 97.9; O2SAT 96
== END 2021-05-27 13:00 | disposition home or self-care (01) | DRG 176 ==
LOC: 3BNU 15:39 → EMEROOARM 15:39 → 2ANU 22:37
PROVIDERS: ADMIT Family Medicine; ATTEND Family Medicine